=== PATIENT | female | born 1985 | race Caucasian/White ===

== ENCOUNTER 2020-02-07 10:07 | Emergency (ER) | payer SELFPAY ==
[2020-02-07 10:10] VITALS: BP 123/64; PULSE 111; TEMP 36.4; O2SAT 100; BMI 27.4
[2020-02-07 10:48] LABS: Add Urine Microscopic? YES; Bilirubin Urine Neg (Negative); Blood Urine 2+ (Negative); Glucose Urine UA Norm (Normal); Ketones Urine Negative (Negative); Leukocyte Esterase Urine 2+ (Negative); Nitrate Urine Negative (Negative); Protein Urine Neg (Negative); RBC Urine 15-25 /hpf (0-2); Specific Gravity, Urine 1.005 (1.005-1.030); Urine Color Yellow (Yellow); Urobilinogen Urine Neg (Negative); pH Urine 6 (5-7)
[2020-02-07 10:49] LABS: Bacteria Urine 2+ /hpf; Squamous Epithelial Cell Urine 15-25 /hpf (0-5); WBC Urine 55-80 /hpf (0-5)
[2020-02-07 10:50] LABS: Add Urine Culture? No
[2020-02-07 10:51] LABS: Amphetamines Screen Urine Positive (Negative); Barbiturates Screen Urine Negative (Negative); Benzodiazepines Screen Urine Negative (Negative); Cocaine Screen Urine Negative (Negative); Opiate Screen Urine Negative (Negative); PCP Screen Urine Negative (Negative); THC Screen Urine Negative (Negative)
[2020-02-07 10:52] LABS: Hematocrit 38.5 % (37.0-47.0); Hemoglobin 12.3 g/dL (11.5-15.3); Mean Corpuscular HGB Conc 31.9 g/dL (30.0-36.0); Mean Corpuscular Hemoglobin 26.7 pg (28.0-34.0); Mean Corpuscular Volume 83.5 fL (81-99); Mean Platelet Volume 9.1 fL (7.4-10.4); Platelet Count 293 10^3/cmm (130-400); Red Blood Count 4.61 10^6/uL (4.1-5.3); Red Cell Distribution Width 17.9 % (12.1-15.1); White Blood Count 7.6 10^3/uL (4.0-10.0)
[2020-02-07 11:20] LABS: Slide Review Slide Review Perform
[2020-02-07 11:23] VITALS: BP 128/86; PULSE 96; RESP 18; O2SAT 99
[2020-02-07 11:26] LABS: Absolute Neutrophil 5.1 10^3/cmm (1.4-6.5); Absolute Segmented Neutrophil 4.9 10/cmm (1.6-7.1); Band Neutrophils Absolute 0.2 10^3/cmm (0.0-1.2); Eosinophils 1 %; Lymphocytes 9 %; Lymphocytes Absolute 1.3 10^3/cmm (1.2-3.4); Monocytes Absolute 1.1 10^3/cmm (0.1-0.6); Platelet Estimate Normal (Normal); Segmented Neutrophils 64 %; Total Cells Counted 100 (0-100)
[2020-02-07 11:45] LABS: Alanine Aminotransferase 112 U/L (0-33); Albumin Level 3.3 g/dL (3.5-5.2); Alkaline Phosphatase 111 IU/L (35-105); Anion Gap 13.1 (5-19); Aspartate Amino Transferase 226 U/L (0-32); Blood Urea Nitrogen 5 mg/dL (6-20); Calcium 8.1 mg/dL (8.5-10.5); Carbon Dioxide 24 mmol/L (22-29); Chloride 100 mmol/L (98-107); Globulin 3.7 g/dL (1.3-4.6); Glucose 72 mg/dL (65-115); Osmolality Calculated 270 mOsm/kg (285-295); Potassium 4.1 mmol/L (3.5-5.1); Sodium 133 mmol/L (136-145); Total Bilirubin 0.2 mg/dL (0.15-1.2)
--- NOTE | 2020-02-07 11:58 | US_ITS ---
WS: [id number] OB ultrasound, 02/07/2020 Clinical Data: dates unknown, initial US Comparison: None. Findings: There is a single intrauterine in a variable lie. The placenta is posterior and grade 0. Th ere is a normal amount of amnionic fluid. The heart rate is 164 beats per minute. The cervix me asures 4.81 cm and is closed Measurements of growth and development: BPD: 5.1 cm HC: 19.3 cm AC: 16.5 cm FL: 3.6 cm The estimated weight is 426 or approximately 15 ounces The estimated gestational age is 21w4d w ith an PAOLO of approximately 06/15/2020. anatomy show a normal stomach, kidneys, bladder, cord insertion, three-vessel cord, entire spin e, four-chamber heart, lateral cerebral ventricles, cerebellum and cisterna magna. US/US OB >= 14 weeks fetus [id number] Impression: 1. Single intrauterine in a variable lie. 2. Estimated gestational age 21w4d with an PAOLO of 06/15/2020. 3. heart rate 164 beats per minute.
[2020-02-07 12:49] VITALS: BP 125/83; PULSE 91; RESP 18; O2SAT 97
[2020-02-07 14:51] VITALS: BP 112/75; PULSE 104; RESP 16; TEMP 36.7; O2SAT 99
--- NOTE | 2020-02-07 23:01 | ED_ITS ---
HPI - General: Chief complaint: OB/Uterine Contractions Stated complaint: NOT SURE HOW FAR/METH WITHDRAWALS Time Seen by Provider: 02/07/20 11:47 History of Present Illness: HPI Narrative: This patient a 34-year-old female who presents today with a recently discovered . She thinks her last period was in September. She did not know she was until a few days ago. She is concerned because she has been using meth throughout the . She started using IV meth during this time. Since she found out she was she has been trying to stop. She went several days without using but felt like she was going into withdrawal and was concerned about injuring the baby. She used a little bit of meth this morning before coming in. She wants to stop completely but was not sure if it was safe for how she should go about doing it. She also feels like she might have a urinary tract infection. She has been feeling the baby move on a daily basis for the last week or so. She does not have an OB doctor. She has had 10 pregnancies and has 4 children. She is not having any vaginal discharge, bleeding, abdominal cramps or pain. Associated symptoms: Reports dysuria; Deny abdominal pain, nausea or vomiting Related Data: : 10 Review of Systems Const: Reports: change in weight; Denies: fever(s) or chills GI: Denies: abdominal pain, nausea or vomiting : Reports: dysuria, urinary frequency, urinary urgency and amenorrhea [facility] ED Female Reproductive History: : 10 Physical Exam Const: COMMON NORMALS: no acute distress, patient oriented x3, no limitations and alert GENERAL APPEARANCE: cooperative and comfortable HENMT: HEAD & SCALP: normal to inspection FACE & SINUS: normal facial exam Eye: GENERAL EYE: appearance normal, both eyes and all related structures Neck/C-Spine: COMMON NORMALS: supple, no meningeal signs and no JVD Chest: COMMONS NORMALS: normal inspection of the chest Resp: COMMON NORMALS: normal respiratory effort, No use of accessory muscles and clear to auscultation bilaterally AUSCULTATION: clear to auscultation bilaterally Cardio: COMMON NORMALS: no JVD, regular rate, regular rhythm and No murmurs present (Cardio) RATE: regular rate RHYTHM: regular rhythm GI: COMMON NORMALS: Normal to inspection, nondistended, normoactive bowel sounds present, Soft to palpation and non-tender INSPECTION: Yes normal to inspection and Yes gravid abdomen (Fundus palpable just above the umbilicus) AUSCULTATION: Yes normoactive bowel sounds PALPATION: Yes Soft to palpation : UTERUS PALPATION: No Uterus tender and No Uterus hypertonus Back/Pelvis: COMMON NORMALS: thoracic and lumbar spine normal to inspection Extremity: COMMON NORMALS: normal to inspection Neuro: COMMON NORMALS: patient oriented x3, moves all extremities, no focal motor deficits and no sensory deficits noted SENSORIUM/ORIENTATION: Yes alert MENINGEAL SIGNS: Yes no meningeal signs Psych: COMMON NORMALS: mental status grossly normal, cooperative and normal affect Skin: COMMON NORMALS: no rashes or lesions noted and turgor normal GENERAL SKIN EXAM: no rashes or lesions noted and turgor normal Course ED course: Patient is not having any symptoms suggesting premature labor complications. She is here solely because of concerns about the meth use during . Ultrasound was done which showed 21-week 4-day fetus with good heart tones. Labs were unremarkable with the exception of a suspected UTI. I spoke with Dr. Chahal as well as with the manager inside about getting her set up with OB and counseling for substance abuse. The patient was glad that ever ything looked okay on the ultrasound. She is very motivated to stay clean. Hopefully she will be successful in doing that. We discussed return precautions and OB follow-up as soon as possible. Vital Signs: Vital signs: Vital Signs Temperature 98.0 F 02/07/20 14:51 Pulse Rate 104 H 02/07/20 14:51 Respiratory Rate 16 02/07/20 14:51 Blood Pressure 112/75 02/07/20 14:51 Pulse Oximetry 99 02/07/20 14:51 MDM - OB/Uterine Contractions 2 Lab Data: Labs: Lab Results 02/07/20 02/07/20 02/07/20 Range/Units 10:32 10:32 10:47 WBC 7.6 (4.0-10.0) 10^3/ uL RBC 4.61 (4.1-5.3) 10^6/u L Hgb 12.3 (11.5-15.3) g/dL Hct 38.5 (37.0-47.0) % MCV 83.5 (81-99) fL MCH 26.7 L (28.0-34.0) pg MCHC 31.9 (30.0-36.0) g/dL RDW 17.9 H (12.1-15.1) % Plt Count 293 (130-400) 10^3/c mm MPV 9.1 (7.4-10.4) fL Lymph % (Auto) Not Reportable Rush % (Auto) Not Reportable Lymph # (Auto) Not Reportable Rush # (Auto) Not Reportable Total Counted 100 (0-100) Atypical Lymphs % 8.0 H (0-5) % Absolute Neutrophi ls 5.1 (1.4-6.5) 10^3/c mm Segmented Neutroph ils 64 % Abs Segm Neuts (Ma n) 4.9 (1.6-7.1) 10/cmm Band Neutrophils 3.0 % Abs Band Neuts (Ma n) 0.2 (0.0-1.2) 10^3/c mm Absolute Lymphocyt es 1.3 (1.2-3.4) 10^3/c mm Lymphocytes (Manua l) 9 % Monocytes (Manual) 14.0 % Absolute Monocytes 1.1 H (0.1-0.6) 10^3/c mm Eosinophils (Manua l) 1 % Absolute Eosinophi ls 0.0 (0.0-0.7) 10^3/c mm Metamyelocytes 1.0 % Platelet Estimate Normal (Normal) Sodium (136-145) mmol/L Potassium (3.5-5.1) mmol/L Chloride (98-107) mmol/L Carbon Dioxide (22-29) mmol/L Anion Gap (5-19) BUN (6-20) mg/dL Creatinine (0.5-0.9) mg/dL GFR Calculation (90-130) mL/min Glucose (65-115) mg/dL Calculated Osmolal ity (285-295) mOsm/k g Calcium (8.5-10.5) mg/dL Total Bilirubin (0.15-1.2) mg/dL AST (0-32) U/L ALT (0-33) U/L Alkaline Phosphata se (35-105) IU/L Total Protein (6.6-8.7) g/dL Albumin (3.5-5.2) g/dL Globulin (1.3-4.6) g/dL Ser , Brigette i-Qnt mIU/mL Urine Color Yellow (Yellow) Urine Appearance Sl cloudy A (CLEAR) Urine pH 6 (5-7) Ur Specific Gravit y 1.005 (1.005-1.030) Urine Protein Neg (Negative) Urine Glucose (UA) Norm (Normal) Urine Ketones Negative (Negative) Urine Blood 2+ H (Negative) Urine Nitrate Negative (Negative) Urine Bilirubin Neg (Negative) Urine Urobilinogen Neg (Negative) mg/dL Ur Leukocyte Mary Jo ase 2+ H (Negative) Urine RBC 15-25 H (0-2) /hpf Urine WBC 55-80 H (0-5) /hpf Ur Squamous Epith Cells 15-25 H (0-5) /hpf Amorphous Sediment Not Reportable Urine Bacteria 2+ H (NONE) /hpf Urine Yeast 2+ H /hpf Urine Opiates Scre en Negative (Negative) ng/mL Ur Barbiturates Sc reen Negative (Negative) ng/mL Ur Phencyclidine S crn Negative (Negative) ng/mL Ur Amphetamines Sc reen Positive H (Negative) ng/mL U Benzodiazepines Scrn Negative (Negative) ng/mL Urine Cocaine Scre en Negative (Negative) ng/mL U Marijuana (THC) Screen Negative (Negative) ng/mL 02/07/20 Range/Units 10:47 WBC (4.0-10.0) 10^3/ uL RBC (4.1-5.3) 10^6/u L Hgb (11.5-15.3) g/dL Hct (37.0-47.0) % MCV (81-99) fL MCH (28.0-34.0) pg MCHC (30.0-36.0) g/dL RDW (12.1-15.1) % Plt Count (130-400) 10^3/c mm MPV (7.4-10.4) fL Lymph % (Auto) Rush % (Auto) Lymph # (Auto) Rush # (Auto) Total Counted (0-100) Atypical Lymphs % (0-5) % Absolute Neutrophi ls (1.4-6.5) 10^3/c mm Segmented Neutroph ils % Abs Segm Neuts (Ma n) (1.6-7.1) 10/cmm Band Neutrophils % Abs Band Neuts (Ma n) (0.0-1.2) 10^3/c mm Absolute Lymphocyt es (1.2-3.4) 10^3/c mm Lymphocytes (Manua l) % Monocytes (Manual) % Absolute Monocytes (0.1-0.6) 10^3/c mm Eosinophils (Manua l) % Absolute Eosinophi ls (0.0-0.7) 10^3/c mm Metamyelocytes % Platelet Estimate (Normal) Sodium 133 L (136-145) mmol/L Potassium 4.1 (3.5-5.1) mmol/L Chloride 100 (98-107) mmol/L Carbon Dioxide 24 (22-29) mmol/L Anion Gap 13.1 (5-19) BUN 5 L (6-20) mg/dL Creatinine 0.5 (0.5-0.9) mg/dL GFR Calculation 143.0 H (90-130) mL/min Glucose 72 (65-115) mg/dL Calculated Osmolal ity 270 L (285-295) mOsm/k g Calcium 8.1 L (8.5-10.5) mg/dL Total Bilirubin 0.2 (0.15-1.2) mg/dL AST 226 H (0-32) U/L ALT 112 H (0-33) U/L Alkaline Phosphata se 111 H (35-105) IU/L Total Protein 7.0 (6.6-8.7) g/dL Albumin 3.3 L (3.5-5.2) g/dL Globulin 3.7 (1.3-4.6) g/dL Ser , Brigette [place]Qnt 15440.00 mIU/mL Urine Color (Yellow) Urine Appearance (CLEAR) Urine pH (5-7) Ur Specific Gravit y (1.005-1.030) Urine Protein (Negative) Urine Glucose (UA) (Normal) Urine Ketones (Negative) Urine Blood (Negative) Urine Nitrate (Negative) Urine Bilirubin (Negative) Urine Urobilinogen (Negative) mg/dL Ur Leukocyte Mary Jo ase (Negative) Urine RBC (0-2) /hpf Urine WBC (0-5) /hpf Ur Squamous Epith Cells (0-5) /hpf Amorphous Sediment Urine Bacteria (NONE) /hpf Urine Yeast /hpf Urine Opiates Scre en (Negative) ng/mL Ur Barbiturates Sc reen (Negative) ng/mL Ur Phencyclidine S crn (Negative) ng/mL Ur Amphetamines Sc reen (Negative) ng/mL U Benzodiazepines Scrn (Negative) ng/mL Urine Cocaine Scre en (Negative) ng/mL U Marijuana (THC) Screen (Negative) ng/mL Discharge Plan Discharge Patient Disposition: Home Clinical Impression: Substance abuse, Abnormal LFTs Qualifiers: Weeks of gestation: 21 weeks Qualified Code(s): Z3A.21 - 21 weeks gestation of UTI (urinary tract infection) Qualifiers: Urinary tract infection type: site unspecified Hematuria presence: with hematuria Qualified Code(s): N39.0 - Urinary tract infection, site not specified Condition: Stable Prescriptions: New prenat.vits,patricia,[id number] Tablet 1 tab PO DAILY Qty: 30 RF: 0 amoxicillin 875 mg tablet 875 mg PO BID Qty: 14 RF: 0 Discharge Orders: Discharge Order (Routine); Ordered 02/07/20 Ordered By: Tran Arroyo Referrals: Rainer Chahal MD [Physician] - Manjeet Bray MD [Primary Care Provider] - Discharge Diet: Usual diet Discharge Activity: Resume usual activity Patient Instructions: (ED), Methamphetamine Abuse (ED) Activity Restrictions/Additional Instructions: Make sure to eat and drink healthy diet. Return to the ED if vomiting and unable to tolerate fluids, fever, abdominal pain, leakage of fluids or vaginal bleeding. Follow-up as soon as possible with Dr. Chahal's office. Also seek assistance with substance abuse from counselors based on the referrals that were given to you. Discharge Date/Time: 02/07/20 14:51 Coding Level of Care Code ED Field Software Engineer for Yunior Villagomez
== END 2020-02-07 14:51 | disposition home or self-care (01) ==
PROVIDERS: Emergency Medicine; Emergency Provider Emergency Medicine; PCP Family Medicine
DX: O99.322 Drug use complicating pregnancy, second trimester (principal); F15.10 Other stimulant abuse, uncomplicated; O23.42 Unspecified infection of urinary tract in pregnancy, second trimester; Z3A.21 21 weeks gestation of pregnancy; O26.892 Other specified pregnancy related conditions, second trimester; R79.9 Abnormal finding of blood chemistry, unspecified
CPT/HCPCS: 12345; 36415; 76805; 80053; 80306; 81001; 84702; 85007; 85025; 99283

== ENCOUNTER 2020-06-20 10:00 | Inpatient (IN) | payer BC, SELFPAY ==
[2020-06-20] VITALS (100 sets, daily range): BP systolic 83–148; BP diastolic 39–81; PULSE 67–142; RESP 15–18; TEMP 36.7–38.1; O2SAT 89–100; BMI 30.7
[2020-06-20 04:12] LABS: Basophils % 0.2 %; Eosinophils # 0.1 10^3/uL (0.0-0.8); Eosinophils % 0.4 %; Hemoglobin 9.8 g/dL (11.5-15.3); Lymphocytes # 1.8 10^3/uL (0.8-4.8); Lymphocytes % 10.5 %; Mean Corpuscular HGB Conc 30.6 g/dL (30.0-36.0); Mean Corpuscular Hemoglobin 22.2 pg (28.0-34.0); Mean Corpuscular Volume 72.4 fL (81-99); Mean Platelet Volume 10.1 fL (7.4-10.4); Monocytes # 1.3 10^3/uL (0.2-0.9); Monocytes % 7.8 %; Neutrophils # 13.52 10^3/uL (1.8-7.7); Neutrophils % 80.5 %; Nucleated Red Blood Cells % 0.1 %; Platelet Count 322 10^3/cmm (130-400); Red Blood Count 4.42 10^6/uL (4.1-5.3); Red Cell Distribution Width 16.2 % (12.1-15.1); White Blood Count 16.8 10^3/uL (4.0-10.0)
[2020-06-20 04:21] LABS: Amphetamines Screen Urine Negative (Negative); Barbiturates Screen Urine Negative (Negative); Benzodiazepines Screen Urine Negative (Negative); Cocaine Screen Urine Negative (Negative); Opiate Screen Urine Negative (Negative); PCP Screen Urine Negative (Negative); THC Screen Urine Negative (Negative)
[2020-06-20] MEDS: lactated ringers 1,000 ML 999 ML IV ×3 (04:25→13:59)
[2020-06-20] MEDS: ampicillin 2,000 MG in sodium chloride 0.9% (plus) 50 ML 100 MG IV (04:26)
--- NOTE | 2020-06-20 07:52 | P.ANESASSM_ITS ---
Pre-Anesthetic Assessment Pre-Anesthetic Assessment: Height/Weight: Height 1.63 m Weight 81.193 kg Temp Pulse Resp BP Pulse Ox 98.2 F 131 H 18 104/59 100 06/20/20 03:28 06/20/20 07:51 06/20/20 05:56 06/20/20 07:51 06/20/20 05:53 Preop Diagnosis: IUP Proposed Procedure: Epidural Familial anesthetic complications: None Was Beta Franklin taken within 24 hours: N/A Last intake: icechips Social: Social History: Tobacco Exam: Pre-Anes Outpt Exam: alert, oriented x 3, clear to auscultation bilaterally and regular rate & rhythm Airway: Cervical ROM: WNL MP: 3 Dentition: Chipped Anesthetic Plan: ASA status: 2 Anesthesia: Regional (specify below) (epidural) Risk of > 500 ml blood loss (7ml/kg in children): Yes, adequate IV access and fluids planned Meds/Allergies Current Medications: Current Medications Generic Name Dose Route Start Last Admin Trade Name Freq PRN Reason Stop Dose Admin Lactated Ringer's 1,000 mls @ 999 m ls/hr 06/20/20 05:56 06/20/20 07:00 Lactated Ringers IV 999 mls/hr .Q1H1M PRN Administration Per L&D Rescitati on Protocol [facility] Anesthesia Female Reproductive History: : 8 Data Anesthesia CBC & Chem 7: 06/20/20 03:57 Other Labs: Laboratory Results - last 48 hr 06/20/20 06/20/20 06/20/20 03:57 03:57 03:57 WBC 16.8 H RBC 4.42 Hgb 9.8 L Hct 32.0 L MCV 72.4 L MCH 22.2 L MCHC 30.6 RDW 16.2 H Plt Count 322 MPV 10.1 Neut % (Auto) 80.5 Lymph % (Auto) 10.5 [place] % (Auto) 7.8 Eos % (Auto) 0.4 Baso % (Auto) 0.2 Neut # (Auto) 13.52 H Lymph # (Auto) 1.8 [place] # (Auto) 1.3 H Eos # (Auto) 0.1 Baso # (Auto) 0.0 Nucleated RBC % (auto) 0.1 Nucleated RBCs # 0.0 Urine Opiates Screen Negative Ur Barbiturates Screen Negative Ur Phencyclidine Scrn Negative Ur Amphetamines Screen Negative U Benzodiazepines Scrn Negative Urine Cocaine Screen Negative U Marijuana (THC) Screen Negative Blood Type O Positive Rho(D) Type Positive Antibody Screen Negative Cardiac Studies: No Data to Display
--- NOTE | 2020-06-20 07:53 | ANES.PROC ---
Anesthesia Procedures Procedure/Date: 06/20/20 Epidural: Time Out Performed: Yes Consents Signed: Procedure Consent and NPO Consent Consent: requested by attending/covering physician, from patient, risks and benefits reviewed and patient agrees to proceed Lumbar Level: L4-L5 Epidural position: sitting Epidural procedure: sterile prep of area, 1% lidocaine to numb the area, 18 g needle, negative for paresthesia passed, neg for paresthesia, test dose given, 1.5% xylocaine 1:200k epi (5 cc divided dose), 0.2% Ropivacaine bolus ml (5 cc), placed PCEA, no systemic response, sterile dressing applied, L.U.D. no apparent complications and 0.2% Ropiavacaine @ mls/hr (13) Additional Comments: Blood return with catheter placement on first attempt, pulled back to 12 cm and skin and aspirated heme. Removed catheter. 2nd attempt loss of resisitance to saline at 6 cm, threaded to 12 cm. Patient reported significant decrease in pain with next several contractions
[2020-06-20] MEDS: dextrose 5%-lactated ringers 1,000 ML 125 ML IV ×3 (07:59→21:41)
[2020-06-20] MEDS: ampicillin 1,000 MG in sodium chloride 0.9% (plus) 50 ML 100 MG IV (07:59)
--- NOTE | 2020-06-20 09:36 | PC.NURSE ---
pt does not have custody of other children, pt informed hotline call will have to be made. pt very cooperative answering questions
[2020-06-20] MEDS: acetaminophen 325 mg Tablet 650 MG PO (12:35)
--- NOTE | 2020-06-20 15:25 | PC.NURSE ---
Notified anesthesia - Dr. Nixon - of section at 1600 if patient has not made significant progress before that time. Dr. Nixon acknowledged understanding, and replied that she would let Will know.
--- NOTE | 2020-06-20 15:29 | PC.NURSE ---
Emily from surgery called and reported Will would be on the floor at 1600 for a section.
[2020-06-20] MEDS: lactated ringers 1,000 ML 125 ML IV ×2 (16:00→16:08)
[2020-06-20] MEDS: oxytocin 30 UNIT/500 ML BAG 600 UNIT IV (16:08)
--- NOTE | 2020-06-20 16:09 | PC.NURSE ---
and at bedside,RN at bedside
[2020-06-20] MEDS: metoclopramide 5 mg/mL SDV 2 mL 10 MG IVP (16:14)
[2020-06-20] MEDS: citric acid-sodium citrate 30 mL UDC PO (16:14)
[2020-06-20] MEDS: famotidine 20 mg/2 mL INJ IVP (16:15)
[2020-06-20] MEDS: clindamycin 900 MG/50 ML PREMIX 100 MG IV (16:15)
--- NOTE | 2020-06-20 16:26 | P.HP_ITS ---
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 She has been followed throughout the day and has not made a lot of progress. She dilated to approximately 7 cm dilated but has had a face presentation periodically and other times a vertex presentation. The infant has not dropped down through the canal and is still staying very high. Should be noted that she is attempting a vaginal after section. She has had 3 successful vaginal deliveries with 1 section with her third secondary to breech presentation. She is a 8, para 4 female. It should be also noted that during this she has had very little care. She saw this physician initially at 27 weeks gestation and then left the state and returned with me seeing her again at 40 weeks and 3 days gestation. She received no care during the remainder of her . The patient's blood type is O+ with antibody screen negative. Her group B strep was negative. Covid was also negative. Present Details : 8 Para: 5 Labs Rubella: Immune RPR: Negative GBS: Negative Review of Systems Const: Reports: fatigue; Denies: fever(s), chills or change in weight Eyes: Denies: change in vision ENMT: Denies: throat pain or odynophagia Card: Denies: chest pain, palpitations or orthopnea Resp: Denies: dyspnea, productive cough or non-productive cough GI: Reports: abdominal pain (Contractions that have settled with epidural.) : Reports: change in menstrual flow Musc: Denies: neck pain or joint redness Neuro: Denies: headache(s), weakness in extremities, lack of coordination or difficulty walking Psych: Denies: anxiety or depression Medications/Allergies Home Medications Medication Instructions Recorded Confirmed Last Taken Type amoxicillin 875 mg PO BID #14 tab 02/07/20 Unknown Rx prenat.vits,patricia,kll-[id number] 1 tab PO DAILY #30 tab 02/07/20 Unknown Rx Allergies Allergy/AdvReac Type Severity Reaction Status Date / Time cephalexin Allergy ADR-Vomitin Verified 02/07/20 10:16 g clarithromycin [From Biaxin] Allergy ADR-Vomitin Verified 02/07/20 10:17 g nystatin Allergy ALGMilton-Emiliano Verified 02/07/20 10:17 Vitals/I&O/Wt Last Vital Signs Temp 99.7 F H 06/20/20 16:24 Pulse 93 06/20/20 16:13 Resp 18 06/20/20 11:25 BP 89/50 06/20/20 16:13 Pulse Ox 100 06/20/20 05:53 06/20/20 06/20/20 06/20/20 06:59 14:59 22:59 Intake Total 1218.750 / 1218.750 Balance 1218.750 / 1218.750 Weight last 48 hrs Weight 81.193 kg Physical Exam Const: COMMON NORMALS: no acute distress and no limitations GENERAL APPEARANCE: cooperative, comfortable and well kempt Resp: COMMON NORMALS: normal respiratory effort, No retractions, No use of accessory muscles and clear to auscultation bilaterally Cardio: COMMON NORMALS: regular rate, regular rhythm and No murmurs present (Cardio) GI: COMMON NORMALS: Normal to inspection, nondistended, normoactive bowel sounds present (She is . uterus otherwise is normal.), Soft to palpation and non-tender : COMMON NORMALS: Yes no CVA tenderness MANUAL OB EXAM: dilated 7 cm, effaced 75% and station -2 Neuro: COMMON NORMALS: CN's II-XII intact bilaterally, moves all extremities, no focal motor deficits and no sensory deficits noted Psych: COMMON NORMALS: mental status grossly normal, Normal thought process present, cooperative and normal affect Urinary Catheter Management^: Smith: Cath Placed During This Visit: yes Reason for Continuing Indwelling Catheter: Acute Urinary Retention or Obstruction Urinary Catheter Date of Insertion: 06/20/20 Urinary Catheter Time of Insertion: 08:25 Data : 06/20/20 03:57 A&P Assessment and plan (1) Non-reassuring heart tones complicating , antepartum: Patient has had intermittent nonreassuring heart tones but overall a decent strip. However as patient has failed to make progress and descend I think it is time to proceed with section. Status: Acute (2) Failure of descent in labor, delivered, current hospitalization: We will proceed with repeat section. Dr. Ann has been consulted. Status: Acute (3) Previous section complicating : See above. Status: Acute (4) Term : Patient has lack of system care during this complicating a term with previous section. Status: Acute (5) Previous section: Status: Acute Attestations Medical Necessity Statement*: This patient has a term in spontaneous labor which failed to progress. She requires a probably greater than 2 midnight hospital stay. Coding Level of Care Code Acute Assistant Director Of Admissions for Chg Fwd Exam Detailed Diagnoses Non-reassuring heart tones complicating , antepartum O36.8390 Failure of descent in labor, delivered, current hospitalization O62.2 Previous section complicating O34.219 Term Z34.90 Previous section Z98.891
[2020-06-20] MEDS: gentamicin inj 120 MG in sodium chloride 0.9% (100 ml) 100 ML 103 MG IV (16:45)
--- NOTE | 2020-06-20 17:30 | P.OP_ITS ---
Operative Report Date of procedure: June 20, 2020 Pre-op Diagnosis: IUP, TOLAC, failure to progress Post-op diagnosis: same Procedure Done: Low transverse section, repeat Specimens removed/disposition: 1. Female infant with a weight of 7 pounds 14 ounces and Apgars of 7 and 9 2. Placenta with a three-vessel cord delivered intact Pathology: none sent Surgeon: Edmond Ann Chiropractic Neurologist: Manjeet Bray Anesthesia: Epidural Estimated blood loss (mL): 1,200 Complications: None Condition: stable Disposition: floor (OB) Procedure: The patient was brought back to the operating room where she was prepped and draped in usual sterile fashion. Anesthesia was found to be adequate. A lower transverse skin incision was then made with a #10 blade. I then dissected down to the underlying subcutaneous tissue until arriving at the prerectal fascia. The fascia was then nicked with the scalpel bilaterally. The fascial incisions were then carried laterally with Ramon scissors. Attention was then turned to the superior aspect of the incision which was grasped with kochers and tented up away from the underlying rectus abdominis muscles. The muscles were then dissected away from the fascia manually, and later with Ramon scissors. Attention was then turned to the inferior aspect of the incision, and the fascia was dissected away from the underlying muscle in similar fashion. The rectus abdominis muscles were then spread manually. The peritoneum was entered manually. Excellent visualization of the uterus was noted. A lower transverse uterine incision was then made with a #10 blade. Upon arriving at the intrauterine cavity, the uterine incision was then extended manually. The infant was noted to be in vertex position. The baby was delivered without difficulty. After delivery of the head, the mouth and nose were suctioned at the site of the incision. There was no meconium. There was no nuchal cord. The remainder of the body was then delivered and placed on the abdomen. The cord was cut and clamped. The baby was then handed to the waiting nurse. The placenta was removed intact. The uterus was externalized. The intrauterine cavity was cleansed of any remaining debris. The uterine incision was reapproximated in 2 layers. The first layer was performed with 0 Vicryl in a running locked stitch. The second layer was an imbricating stitch also using 0 Vicryl. The uterus was replaced into the abdomen. The peritoneum was then irrigated with warm saline. I reexamined the uterine incision and found it to be hemostatic. The rectus abdominis muscles were then reapproximated using 0 Vicryl in a running stitch. The fascia was then reapproximated using 0 Vicryl in running stitch. The subcutaneous tissue was then approximated using 0 Vicryl in a running stitch as well. The skin was reapproximated using torin. A sterile dressing was placed. All counts were correct x2. Both the mother and baby were in stable condition.
--- NOTE | 2020-06-20 19:40 | PC.NURSE ---
pt to room OB9 from OR via bed. oriented to room/call light. instructed not to get out of bed without assistance. instructed she can begin clear liquids at 2200, and may get up to the chair then as well.
[2020-06-20] MEDS: ketorolac 30 mg/mL INJ IVP (23:53)
[2020-06-21 02:00] VITALS: BP 99/57; PULSE 89; O2SAT 96
[2020-06-21 04:10] VITALS: BP 108/61; PULSE 92; RESP 16; O2SAT 96
[2020-06-21] MEDS: ketorolac 30 mg/mL INJ IVP (06:06)
[2020-06-21 06:28] LABS: Hematocrit 24.3 % (37.0-47.0); Hemoglobin 7.4 g/dL (11.5-15.3); Mean Corpuscular HGB Conc 30.5 g/dL (30.0-36.0); Mean Corpuscular Volume 72.3 fL (81-99); Mean Platelet Volume 10.1 fL (7.4-10.4); Platelet Count 257 10^3/cmm (130-400); Red Blood Count 3.36 10^6/uL (4.1-5.3); Red Cell Distribution Width 16.6 % (12.1-15.1)
--- NOTE | 2020-06-21 08:30 | ANE.PACU2 ---
Inpatient post-anesthesia follow up: Airway intact: Yes Vital signs: Temperature 97.4 F Pulse Rate 92 Respiratory Rate 18 Blood Pressure 119/68 Pulse Oximetry 96 Oxygen Delivery Me thod Room Air Oxygen Flow Rate 0 Fraction of Inspir ed Oxygen Hydration adequate: Yes Nausea and vomiting: No Pain level: 1 Mental status: Baseline Additional Comments: No numbness or weakness, no complaints of headache, messina recently removed
[2020-06-21] MEDS: ferrous sulfate EC 325 mg Tablet PO ×2 (09:10→17:49)
[2020-06-21] MEDS: prenatal vitamin Capsule 1 CAP PO (09:10)
[2020-06-21] MEDS: docusate sodium 100 mg Capsule PO ×2 (09:10→17:49)
[2020-06-21] MEDS: HYDROcodone-acetaminophen 5-325 mg Tablet PO ×4 (09:10→23:09)
[2020-06-21 09:45] VITALS: BP 130/85; PULSE 92; RESP 18; TEMP 36.7
--- NOTE | 2020-06-21 10:07 | PM.OBGYPN ---
PROGRAM ARCHITECT Subjective Subjective: Interval history: The patient was off the floor when I went into her room. Reports from the nurses that she is doing well. Her bleeding is been appropriate. Her pain is been well controlled. DFS is involved in her case and she may lose her babies apparently she is frustrated about that. There are no other concerns at this time. Labor: Station: -2 Amniotic Membrane Status: Ruptured Monitor Mode: External Contraction Pattern: Regular Status: Category II Vitals/I&O/Wt Last Vital Signs Temp 98.7 F 06/20/20 20:10 Pulse 92 06/21/20 04:10 Resp 16 06/21/20 04:10 BP 108/61 06/21/20 04:10 Pulse Ox 96 06/21/20 04:10 06/20/20 06/21/20 06/21/20 22:59 06:59 14:59 Intake Total 2053 / 3271.750 300 / 300 Output Total 3650 / 3650 1700 / 5350 400 / 400 Balance -1597 / -378.250 -1700 / -2078.250 -100 / -100 Weight last 48 hrs Weight 179 lb Physical Exam Narrative: EXAM NARRATIVE: She is in no acute distress Lungs are clear auscultation bilaterally Her heart has a regular rate and rhythm Her fundus is below the umbilicus and firm Her dressing is clean, dry and intact Her extremities have trace edema Urinary Catheter Management^: Smith: Cath Placed During This Visit: yes, but has since been removed by the nurse Reason for Continuing Indwelling Catheter: Decision to DC Catheter Urinary Catheter Date of Insertion: 06/20/20 Urinary Catheter Time of Insertion: 08:25 Date Urinary Catheter Removed: 06/21/20 Time Urinary Catheter Discontinued: 08:00 Data : 06/21/20 06:15 Attestations Medical Necessity Statement*: Routine post care. I Anticipate discharge tomorrow Coding Level of Care Code Acute Road Freight Brake Coupler for Yunior Villagomez
[2020-06-21] MEDS: ibuprofen 800 mg tablet PO ×2 (14:57→21:01)
[2020-06-21 15:30] VITALS: BP 119/68; PULSE 92; RESP 18; TEMP 36.3
[2020-06-21 22:00] VITALS: BP 131/74; PULSE 111; RESP 16; O2SAT 99
--- NOTE | 2020-06-22 05:08 | PM.OBGYDC ---
Discharge Providers PREMIUM CARD CANCELLATION CLERK Date of Admission: 06/20/20 10:00 Date of Discharge: 06/22/20 Attending Provider at Admission: Manjeet Bray MD Attending Provider at Discharge: Manjeet Bray MD Primary Care Provider: Manjeet Bray MD Diagnoses at Discharge Discharge Diagnosis (1) Non-reassuring heart tones complicating , antepartum: Status: Acute (2) Failure of descent in labor, delivered, current hospitalization: Status: Acute (3) Previous section complicating : Status: Acute (4) Term : Status: Acute (5) Previous section: Status: Acute Reason for Visit Reason for Visit: contractions Hospital Course Hospital Course The patient presented to the hospital in active labor. The patient had previous section. As such myself as well as anesthesia were consulted and were immediately available in case of emergency. Despite laboring to 9 cm, the baby was not descending appropriately. The baby began having prolonged decelerations, the decision was made to proceed with a section. A was performed, and the patient had an unremarkable course. Her pain was well controlled. Her bleeding was within normal limits. She passed flatus. She tolerated advancing her diet to regular diet. She ambulated without difficulty. Information Peripartum Data: Infant Delivery Method: Physical Exam Narrative: EXAM NARRATIVE: She is in no acute distress Lungs are clear auscultation bilaterally Her heart has a regular rate and rhythm Her fundus is below the umbilicus and firm Her incision is clean dry and intact. Her extremities have trace edema Urinary Catheter Management^: Smith: Cath Placed During This Visit: yes, but has since been removed by the nurse Reason for Continuing Indwelling Catheter: Decision to DC Catheter Urinary Catheter Date of Insertion: 06/20/20 Urinary Catheter Time of Insertion: 08:25 Date Urinary Catheter Removed: 06/21/20 Time Urinary Catheter Discontinued: 08:00 Discharge Data Data Completed and Pending: Labs from last 24 hours 06/21/20 06:15 WBC 22.0 H RBC 3.36 L Hgb 7.4 L Hct 24.3 L MCV 72.3 L MCH 22.0 L MCHC 30.5 RDW 16.6 H Plt Count 257 MPV 10.1 Vitals: Last Vital Signs Temp 97.4 F L 06/21/20 15:30 Pulse 111 H 06/21/20 22:00 Resp 16 06/21/20 22:00 BP 131/74 06/21/20 22:00 Pulse Ox 99 06/21/20 22:00 Discharge Plan Discharge Patient Disposition: Home Condition: Stable Prescriptions: New ibuprofen 800 mg Tablet 800 mg PO TID Qty: 45 RF: 0 hydrocodone-acetaminophen 5-325 mg Tablet 1 - 2 tab PO Q4H PRN (Reason: Moderate To Severe Pain) Qty: 20 RF: 0 Continued prenat.vits,patricia,kws-ephu-cocud Tablet 1 tab PO DAILY Qty: 30 RF: 0 Discontinued amoxicillin 875 mg tablet 875 mg PO BID Qty: 14 RF: 0 Discharge Orders: Discharge Order (Routine); Ordered 06/22/20 Ordered By: Edmond Ann Referrals: Manjeet Bray MD [Primary Care Provider] - 6 Weeks Edmond Ann MD [Physician] - 4-7 days ( afternoon is probably the best option) Discharge Diet: Regular Discharge Activity: Limit activity as instructed Discharge Attestations PREMIUM CARD CANCELLATION CLERK Time Spent in Discharge Care*: less than 30 min Specific Discharge Activities: Specific discharge activities: educating patient Coding Level of Care Code Acute Claims Adjustor for Chg Fwd Diagnoses Non-reassuring heart tones complicating , antepartum O36.8390 Failure of descent in labor, delivered, current hospitalization O62.2 Previous section complicating O34.219 Term Z34.90 Previous section Z98.891
[2020-06-22] MEDS: prenatal vitamin Capsule 1 CAP PO (08:51)
[2020-06-22] MEDS: docusate sodium 100 mg Capsule PO (08:51)
[2020-06-22] MEDS: ferrous sulfate EC 325 mg Tablet PO (08:51)
[2020-06-22] MEDS: HYDROcodone-acetaminophen 5-325 mg Tablet PO (08:52)
[2020-06-22] MEDS: ibuprofen 800 mg tablet PO (08:52)
[2020-06-22 09:05] VITALS: BP 146/87; PULSE 97; RESP 20; TEMP 36.4; O2SAT 97
[2020-06-22 09:20] VITALS: BP 146/87; PULSE 97; RESP 20; TEMP 36.4; O2SAT 97
[2020-06-22 09:32] VITALS: BP 146/87; PULSE 97; RESP 20; TEMP 36.4; O2SAT 97
== END 2020-06-22 09:20 | disposition home or self-care (01) | DRG 788 ==
LOC: OPOB 17:01 → OBGYN 17:01
PROVIDERS: Family Medicine; Admitting Provider Family Medicine; PCP Family Medicine; Visit Provider Family Medicine
PROC: (CPT 59514; principal; 2020-06-20 16:45)
DX: O34.211 Maternal care for low transverse scar from previous cesarean delivery (principal); N85.8 Other specified noninflammatory disorders of uterus; Z3A.40 40 weeks gestation of pregnancy; Z37.0 Single live birth; O32.4XX0 Maternal care for high head at term, not applicable or unspecified; O76 Abnormality in fetal heart rate and rhythm complicating labor and delivery
CPT/HCPCS: 12345; 36415; 51702; 59025; 59409; 80306; 85025; 85027; 86850; 86900; 99211; J0131; J0290; J1580; J1885; J2274; J2370; J2765; J2795; J3010; J3490

== ENCOUNTER 2021-11-09 05:24 | Emergency (ER) | payer BC, MEDICAID, SELFPAY ==
[2021-11-09 05:27] VITALS: BP 143/76; PULSE 57; RESP 18; TEMP 36.5; O2SAT 100; BMI 23.1
[2021-11-09 05:35] LABS: Basophils # 0.1 10^3/uL (0.0-0.1); Basophils % 0.7 %; Eosinophils # 0.1 10^3/uL (0.0-0.8); Eosinophils % 1.5 %; Hematocrit 30.6 % (37.0-47.0); Hemoglobin 8.8 g/dL (11.5-15.3); Lymphocytes # 2.3 10^3/uL (0.8-4.8); Lymphocytes % 23.9 %; Mean Corpuscular HGB Conc 28.8 g/dL (30.0-36.0); Mean Corpuscular Hemoglobin 17.9 pg (28.0-34.0); Mean Corpuscular Volume 62.3 fl (81-99); Monocytes # 0.9 10^3/uL (0.2-0.9); Monocytes % 9.6 %; Neutrophils # 6.06 10^3/uL (1.8-7.7); Neutrophils % 64.2 %; Nucleated Red Blood Cells % 0 %; Platelet Count 382 10^3/cmm (130-400); Red Blood Count 4.91 10^6/uL (4.1-5.3); Red Cell Distribution Width 18.1 % (12.1-15.1); White Blood Count 9.5 10^3/uL (4.0-10.0)
[2021-11-09 05:49] LABS: HCG, Serum Qual Negative (Negative)
[2021-11-09 05:50] VITALS: BP 143/76; PULSE 80; RESP 16; O2SAT 100
[2021-11-09 05:52] LABS: Alanine Aminotransferase 27 U/L (0-33); Albumin Level 4.2 g/dL (3.5-5.2); Alkaline Phosphatase 61 IU/L (35-105); Anion Gap 13.2 (5-19); Aspartate Amino Transferase 23 U/L (0-32); Blood Urea Nitrogen 13 mg/dL (6-20); Calcium 8.7 mg/dL (8.5-10.5); Carbon Dioxide 23 mmol/L (22-29); Chloride 102 mmol/L (98-107); Creatinine Clr Calc Pharmacy 119.5368; Globulin 3.2 g/dL (1.3-4.6); Glomerular Filtration Rate 114.4 mL/min (90-130); Glucose 106 mg/dL (65-115); Lipase 29 U/L (13-60); Osmolality Calculated 279 mOsm/kg (285-295); Potassium 4.2 mmol/L (3.5-5.1); Sodium 134 mmol/L (136-145); Total Bilirubin 0.2 mg/dL (0.15-1.2); Total Protein 7.4 g/dL (6.6-8.7)
[2021-11-09] MEDS: morphine 4 mg/mL SDV 1 mL IVP ×2 (05:54→06:36)
[2021-11-09] MEDS: ondansetron 2 mg/ML SDV 2 mL 4 MG IVP ×2 (05:54→06:36)
--- NOTE | 2021-11-09 06:03 | CTR_ITS ---
PROCEDURE INFORMATION: Exam: CT Abdomen And Pelvis Without Contrast Exam date and time: 11/09/2021 6:17 AM Age: 36 years old Clinical indication: Abdominal pain; Prior surgery; Surgery type: ; Additional info: Abd pain TECHNIQUE: Imaging protocol: Computed tomography of the abdomen and pelvis without contrast. Radiation optimization: All CT scans at this facility use at least one of these dose optimization techniques: automated exposure control; mA and/or kV adjustment per patient size (includes targeted exams where dose is matched to clinical indication); or iterative reconstruction. COMPARISON: CT Abdomen/Pelvis Renal [id number] 01/05/2018 6:47 PM RADIATION DOSE METRICS: Total DLP (mGy-cm): 910.82 FINDINGS: Liver: Normal. No mass. Gallbladder and bile ducts: Normal. No calcified stones. No ductal dilation. Pancreas: Normal. No ductal dilation. Spleen: Normal. No splenomegaly. Adrenal glands: Normal. No mass. Kidneys and ureters: Normal. No hydronephrosis. Stomach and bowel: Unremarkable. No obstruction. No mucosal thickening. Appendix: No evidence of appendicitis. Intraperitoneal space: Unremarkable. No free air. No significant fluid collection. Vasculature: Unremarkable. No abdominal aortic aneurysm. Lymph nodes: Unremarkable. No enlarged lymph nodes. Urinary bladder: Unremarkable as visualized. Reproductive: Unremarkable as visualized. Bones/joints: Unremarkable. No acute fracture. Soft tissues: Unremarkable. CT/CT abdomen pelvis wo con [id number] IMPRESSION: No acute findings.
[2021-11-09] MEDS: lidocaine 2% viscous 15 ML, aluminum-mag hydrox-simethicon 30 ML, sucralfate oral liq 1 GM PO (06:36)
[2021-11-09 06:37] VITALS: BP 141/86; PULSE 63; RESP 16; O2SAT 100
--- NOTE | 2021-11-09 06:44 | W.ED.ABDPA2 ---
HPI - Abdominal Pain General: Chief Complaint: Abdominal Pain Stated Complaint: ABD pain Time Seen by Provider: 11/09/21 05:45 Source: patient Mode of arrival: ambulatory Limitations: no limitations History of Present Illness: 36-year-old female presents emergency room complaining of abdominal pain. She is refers most of her pain to the epigastric area. She states she was having aggressive sex this morning and her pain began during the night. Pain is in the epigastrium. She denies any nausea vomiting diarrhea no dysuria urgency or frequency no vaginal bleeding. She is 1 week post menses with normal menses although she does admit to having unprotected sex. Patient has previously had sections but denies previous cholecystectomy or appendectomy. No history of upper GI bleed. She does have some chronic anemia. MD elicited complaint: abdominal pain Pertinent past history: none Onset (ago): hour(s) Pain Consistency: constant Location: Epigastric Severity: moderate Quality: cramping Radiation: none Migration to: no migration Exacerbating factors: movement Relieving factors: rest Associated Symptoms: Reports GI cramping, nausea and poor appetite; Denies anorexia, belching, bloating, change in bowel habits, change in stool character, chills, coffee ground emesis, constipation, diarrhea, dyspepsia, dysuria, excessive flatus, fever(s), heartburn, hematochezia, hematuria, hematemesis, fecal incontinence, loose stools, melena, syncope and vomiting Review of Systems Const: Denies: fever(s) or chills ENMT: Denies: throat pain, ear or mastoid pain, nasal discharge or nasal congestion Card: Denies: syncope Resp: Denies: dyspnea, productive cough or non-productive cough GI: Reports: abdominal pain, nausea and GI cramping; Denies: vomiting, hematemesis, coffee ground emesis, heartburn, diarrhea, constipation, bloating, belching, excessive flatus, fecal incontinence, change in bowel habits, change in stool character, hematochezia or melena : Denies: flank pain, difficulty voiding, dysuria, urinary frequency, urinary urgency or hematuria Musc: Reports: back pain (Chronic); Denies: neck pain Skin/Breast: Denies: rash or pruritus PFS ED PFSH: Medical History (Updated 11/09/21 @ 09:40 by Angel Costa DO) Chronic back pain Surgical History (Updated 11/09/21 @ 06:48 by Angel Costa DO) Previous section Social History (Updated 11/09/21 @ 06:48 by Angel Costa DO) Smoking and tobacco status: current every day smoker Alcohol intake: current Substance/Drug Use: current Substance/Drug use type: Methamphetamine Physical Exam Const: COMMON NORMALS: no acute distress GENERAL APPEARANCE: cooperative and comfortable ORIENTATION/CONSCIOUSNESS: Yes awake, Yes oriented to person, Yes oriented to place and Yes oriented to time HENMT: COMMON NORMALS: normocephalic and atraumatic HEAD & SCALP: normocephalic and atraumatic Neck/C-Spine: COMMON NORMALS: no JVD Resp: COMMON NORMALS: normal respiratory effort, No retractions, No use of accessory muscles and clear to auscultation bilaterally AUSCULTATION: clear to auscultation bilaterally Cardio: COMMON NORMALS: no JVD, regular rate, regular rhythm and No murmurs present (Cardio) RATE: regular rate RHYTHM: regular rhythm GI: COMMON NORMALS: Soft to palpation and No hepatosplenomegaly present AUSCULTATION: Yes normoactive bowel sounds PALPATION: Yes Soft to palpation, Yes Tenderness to palpation present (GI) (Epigastric), No Guarding due to palpation present (GI) and Yes No hepatosplenomegaly present Extremity: COMMON NORMALS: normal to inspection, capillary refill normal, no clubbing, cyanosis or edema, no calf tenderness and no pedal edema Neuro: SENSORIUM/ORIENTATION: Yes oriented to person, Yes oriented to place and Yes oriented to time Skin: COMMON NORMALS: no rashes or lesions noted GENERAL SKIN EXAM: no rashes or lesions noted Course Vital Signs: Vital signs: Vital Signs Temperature 97.7 F 11/09/21 05:27 Pulse Rate 63 11/09/21 06:37 Respiratory Rate 17 11/09/21 08:56 Blood Pressure 141/86 11/09/21 06:37 Pulse Oximetry 100 11/09/21 06:37 MDM - Abdominal Pain Medical Decision Making Abdominal pelvic pain improved. CT of the abdomen do not show anything acute White count is normal she is anemic but in reviewing her old labs this is a chronic issue. We will go ahead and discharge her home she does have a mild cystitis which we will treat clear liquid diet switch her to diclofenac. I suspect she may have ruptured a small ovarian cyst although we do not see any fluid on there she is not showing anything significant on this CT. Pelvic rest for 1 week. Medical Records I reviewed the patient's medical records. Lab Data I reviewed the patient's lab results. : 11/09/21 05:32 11/09/21 05:32 Labs/Radiology: Radiology Impressions Abdomen/Pelvis CT 11/09/21 06:03 IMPRESSION: No acute findings. Laboratory Results WBC 9.5 10^3/uL (4.0-10.0) 11/09/21 05:32 RBC 4.91 10^6/uL (4.1-5.3) 11/09/21 05:32 Hgb 8.8 g/dL (11.5-15.3) L 11/09/21 05:32 Hct 30.6 % (37.0-47.0) L 11/09/21 05:32 MCV 62.3 fl (81-99) L 11/09/21 05:32 MCH 17.9 pg (28.0-34.0) L 11/09/21 05:32 MCHC 28.8 g/dL (30.0-36.0) L 11/09/21 05:32 RDW 18.1 % (12.1-15.1) H 11/09/21 05:32 Plt Count 382 10^3/cmm (130-400) 11/09/21 05:32 MPV 9.0 fL (7.4-10.4) 11/09/21 05:32 Neut % (Auto) 64.2 % 11/09/21 05:32 Lymph % (Auto) 23.9 % 11/09/21 05:32 [place] % (Auto) 9.6 % 11/09/21 05:32 Eos % (Auto) 1.5 % 11/09/21 05:32 Baso % (Auto) 0.7 % 11/09/21 05:32 Neut # (Auto) 6.06 10^3/uL (1.8-7.7) 11/09/21 05:32 Lymph # (Auto) 2.3 10^3/uL (0.8-4.8) 11/09/21 05:32 [place] # (Auto) 0.9 10^3/uL (0.2-0.9) 11/09/21 05:32 Eos # (Auto) 0.1 10^3/uL (0.0-0.8) 11/09/21 05:32 Baso # (Auto) 0.1 10^3/uL (0.0-0.1) 11/09/21 05:32 Nucleated RBC % (auto) 0 % 11/09/21 05:32 Nucleated RBCs # 0.0 /100WBC 11/09/21 05:32 Sodium 134 mmol/L (136-145) L 11/09/21 05:32 Potassium 4.2 mmol/L (3.5-5.1) 11/09/21 05:32 Chloride 102 mmol/L (98-107) 11/09/21 05:32 Carbon Dioxide 23 mmol/L (22-29) 11/09/21 05:32 Anion Gap 13.2 (5-19) 11/09/21 05:32 BUN 13 mg/dL (6-20) 11/09/21 05:32 Creatinine 0.6 mg/dL (0.5-0.9) 11/09/21 05:32 GFR Calculation 114.4 mL/min (90-130) 11/09/21 05:32 Glucose 106 mg/dL (65-115) 11/09/21 05:32 Calculated Osmolality 279 mOsm/kg (285-295) L 11/09/21 05:32 Calcium 8.7 mg/dL (8.5-10.5) 11/09/21 05:32 Total Bilirubin 0.2 mg/dL (0.15-1.2) 11/09/21 05:32 AST 23 U/L (0-32) 11/09/21 05:32 ALT 27 U/L (0-33) 11/09/21 05:32 Alkaline Phosphatase 61 IU/L (35-105) 11/09/21 05:32 Total Protein 7.4 g/dL (6.6-8.7) 11/09/21 05:32 Albumin 4.2 g/dL (3.5-5.2) 11/09/21 05:32 Globulin 3.2 g/dL (1.3-4.6) 11/09/21 05:32 Lipase 29 U/L (13-60) 11/09/21 05:32 HCG, Qual Negative (Negative) 11/09/21 05:32 Urine Color Yellow (Yellow) 11/09/21 08:29 Urine Appearance Clear (CLEAR) 11/09/21 08:29 Urine pH 6 (5-7) 11/09/21 08:29 Ur Specific [place] 1.015 (1.005-1.030) 11/09/21 08:29 Urine Protein Neg (Negative) 11/09/21 08:29 Urine Glucose (UA) Norm (Normal) 11/09/21 08:29 Urine Ketones Negative (Negative) 11/09/21 08:29 Urine Blood Neg (Negative) 11/09/21 08:29 Urine Nitrate Negative (Negative) 11/09/21 08:29 Urine Bilirubin Neg (Negative) 11/09/21 08:29 Urine Urobilinogen Norm mg/dL (Negative) 11/09/21 08:29 Ur Leukocyte Esterase 2+ (Negative) H 11/09/21 08:29 Urine RBC 5-10 /hpf (0-2) H 11/09/21 08:29 Urine WBC 10-15 /hpf (0-5) H 11/09/21 08:29 Ur Squamous Epith Cells 10-15 /hpf (0-5) H 11/09/21 08:29 Amorphous Sediment Not Reportable 11/09/21 08:29 Urine Bacteria Trace /hpf (NONE) 11/09/21 08:29 Urine Mucus Trace /hpf 11/09/21 08:29 Discharge Plan Discharge Patient Disposition: Home Clinical Impression: Chronic back pain, Abdominal pain, Cystitis Condition: Stable Prescriptions: New diclofenac sodium 75 mg tablet,delayed release (DR/EC) 75 mg PO Q12H PRN (Reason: pain) Qty: 20 0RF promethazine 25 mg tablet 25 mg PO Q6H PRN (Reason: nausea and vomiting) Qty: 20 0RF sulfamethoxazole-trimethoprim [Bactrim DS] 800-160 mg tablet 1 tab PO BID 7 Days Qty: 14 0RF Discontinued naproxen sodium [Aleve] 220 mg Tablet 220 mg PO Q12H PRN (Reason: Pain) 0RF No Action Tylenol Ex Str Rapid Release 500 mg Tablet 1,000 mg PO Q6H PRN (Reason: Pain) 0RF Discharge Orders: Discharge ED (Routine); Ordered 11/09/21 Ordered By: Angel Costa Referrals: Manjeet Bray MD [Primary Care Provider] - Discharge Diet: Clear Liquid Discharge Activity: Increase activity as tolerated Patient Instructions: Abdominal Pain (ED), Opioid Safety Coding Level of Care Code ED Button Sewing Machine Operator for Chg Fwd Exam Comprehensive
[2021-11-09 08:56] VITALS: RESP 17
[2021-11-09] MEDS: morphine 4 mg/mL SDV 1 mL 2 MG IVP (08:56)
[2021-11-09 09:04] LABS: Add Urine Microscopic? YES; Bilirubin Urine Neg (Negative); Blood Urine Neg (Negative); Glucose Urine UA Norm (Normal); Ketones Urine Negative (Negative); Leukocyte Esterase Urine 2+ (Negative); Nitrate Urine Negative (Negative); Protein Urine Neg (Negative); Specific Gravity, Urine 1.015 (1.005-1.030); Urine Appearance Clear (CLEAR); Urine Color Yellow (Yellow); Urobilinogen Urine Norm (Negative); pH Urine 6 (5-7)
[2021-11-09 09:05] LABS: Add Urine Culture? No; Bacteria Urine TRACE /hpf; Mucus Urine TRACE /hpf
== END 2021-11-09 09:55 | disposition home or self-care (01) ==
PROVIDERS: Emergency Medicine; Emergency Provider Family Medicine; PCP Family Medicine
DX: N30.90 Cystitis, unspecified without hematuria (principal); R10.9 Unspecified abdominal pain; M54.9 Dorsalgia, unspecified; G89.29 Other chronic pain
CPT/HCPCS: 74176; 80053; 81001; 83690; 84703; 85025; 96374; 96375; 96376; 99284; J2270; J2405

== ENCOUNTER 2022-08-02 12:51 | Emergency (ER) | payer BC, MEDICAID, SELFPAY ==
[2022-08-02 13:03] VITALS: BP 132/80; PULSE 81; RESP 17; TEMP 36.4; O2SAT 100; BMI 22.3
--- NOTE | 2022-08-02 13:19 | CT_ITS ---
WS: [id number] CT ABDOMEN PELVIS TECHNIQUE: Contrast-enhanced CT of the abdomen and pelvis with coronal and sagittal reformatted image s. CLINICAL INFORMATION: recurrent lower abd/pelvis mass/bulge COMPARISON: CT November 09, 2021 DLP: 384.[address] scans at [facility] use at least one of these dose optimization techniques: automated e xposure control; mA and/or kV adjustment per patient size (includes targeted exams where dose is matc hed to clinical indication); or iterative reconstruction. FINDINGS: Tiny fat-containing umbilical hernia. Hepatomegaly diffuse fatty infiltration the liver. Normal greg l vein and splenic vein. Lung bases are well aerated. Normal gallbladder. Normal pancreatic parenchym al enhancement. Normal caliber abdominal aorta. Normal GE junction. Adrenal glands are normal. Normal renal parenchymal enhancement. No hydronephrosi s. Physiologic uterine enhancement with fluid or endometrial thickening. Normal sigmoid colon. No hig h-grade small or large bowel obstruction. Disc space narrowing L5-S1. CT/CT abdomen pelvis w con* [id number] IMPRESSION: 1. Normal bilateral renal parenchymal enhancement. No hydronephrosis. 2. Hepatomegaly with diffuse fatty infiltration liver. 3. Tiny fat-containing umbilical hernia. 4. Normal appendix in the RIGHT lower quadrant. 5. No acute findings in the abdomen or pelvis.
--- NOTE | 2022-08-02 13:20 | ED_ITS ---
HPI - Abdominal Pain General: Chief Complaint: Abdominal Pain Stated Complaint: urinary pain Time Seen by Provider: 08/02/22 13:09 Source: patient Mode of arrival: ambulatory Limitations: no limitations History of Present Illness: Patient is a nice 37-year-old female presents to ED today with a complaint of an intermittent right lower abdominal/pelvic mass/bulge that she has noticed over the past 3 weeks or so. She states when mass is present she will have discomfort across her lower abdomen and pelvis and has even noticed redness to her abdomen at times. She states mass will then seem to subside on its own thus relieving her discomfort. Patient states she is passing stool and flatulence normally. No urinary complaints. She states mass/bulge is at the right of her previous section scar. No nausea or vomiting. No fevers. MD elicited complaint: abdominal pain Pertinent past history: none Onset (ago): week(s) Pain Consistency: intermittent Location: RLQ and Pelvis Severity: moderate Quality: sharp Radiation: none Migration to: no migration Exacerbating factors: other (lifting, exertion, sitting up) Relieving factors: nothing Associated Symptoms: Reports no associated symptoms; Denies bloating, change in bowel habits, chills, diarrhea, dysuria, fever(s), hematochezia, hematuria, melena, nausea and vomiting Related Data: Patient : No Review of Systems Const: Denies: fever(s), chills, body aches, fatigue or malaise Card: Denies: chest pain Resp: Denies: dyspnea GI: Reports: abdominal pain; Denies: nausea, vomiting, diarrhea, bloating, change in bowel habits, pain on defecation, rectal pain, hematochezia, melena or mucus in stool : Denies: flank pain, dysuria, hematuria, vaginal odor, vaginal bleeding or vaginal discharge Musc: Denies: back pain Neuro: Denies: headache(s), numbness in extremities, weakness in extremities, sensory changes or dizziness PFSH ED PFSH: Medical History Chronic back pain Surgical History Previous section Social History Smoking and tobacco status: current every day smoker Alcohol intake: current Physical Exam Const: COMMON NORMALS: no acute distress, average body habitus, patient oriented x3, no limitations, healthy appearing, alert and well nourished GENERAL APPEARANCE: cooperative ORIENTATION/CONSCIOUSNESS: Yes awake, Yes oriented to person, Yes oriented to place and Yes oriented to time Resp: COMMON NORMALS: normal respiratory effort and clear to auscultation bilaterally AUSCULTATION: clear to auscultation bilaterally Cardio: COMMON NORMALS: regular rate and regular rhythm RATE: regular rate RHYTHM: regular rhythm GI: COMMON NORMALS: Normal to inspection, nondistended, normoactive bowel sounds present, Soft to palpation, No hepatosplenomegaly present and no masses INSPECTION: Yes normal to inspection AUSCULTATION: Yes normoactive bowel sounds PALPATION: Yes Soft to palpation, No Guarding due to palpation present (GI), No Rigid due to palpation and Yes No hepatosplenomegaly present OTHER: pt is seated in a recliner in which is not ideal for an abdominal examination; she seems to have some mild discomfort to the R of her section scar; there is no mass/bulge palpable; I do not appreciate any obvious abdominal defects : COMMON NORMALS: Yes no CVA tenderness BLADDER/KIDNEY EXAM: Yes no CVA tenderness Back/Pelvis: COMMON NORMALS: no CVA tenderness Extremity: COMMON NORMALS: normal to inspection GENERAL: Yes normal exam except as noted Neuro: TED COMA SCALE: document GCS findings Ted coma scale eye opening: Spontaneous Ted coma scale verbal response: Orientated [place] coma scale motor response: Obey commands [place] coma scale total score: 15 COMMON NORMALS: patient oriented x3 SENSORIUM/ORIENTATION: Yes alert, Yes oriented to person, Yes oriented to place and Yes oriented to time Skin: COMMON NORMALS: no rashes or lesions noted GENERAL SKIN EXAM: no rashes or lesions noted Course Vital Signs: Vital signs: Vital Signs Temperature 97.5 F L 08/02/22 13:03 Pulse Rate 81 08/02/22 13:03 Respiratory Rate 17 08/02/22 13:03 Blood Pressure 132/80 08/02/22 13:03 Pulse Oximetry 100 08/02/22 13:03 Oxygen Delivery Me thod 08/02/22 13:03 MDM - Abdominal Pain Medical Decision Making CT ab/pelvis negative. No incarcerated/strangulated hernias were appreciated on my exam. Hernia possible just reduced at the moment. She appears in no acute distress. Vital signs are stable. Blood work is unremarkable. We will go ahead and place a referral to Dr. Abraham for evaluation of a possible incisional hernia. Strict return to ED precautions given. Lab Data 08/02/22 14:04 08/02/22 14:04 Labs/Radiology: Radiology Impressions Abdomen/Pelvis CT 08/02/22 13:19 IMPRESSION: 1. Normal bilateral renal parenchymal enhancement. No hydronephrosis. 2. Hepatomegaly with diffuse fatty infiltration liver. 3. Tiny fat-containing umbilical hernia. 4. Normal appendix in the RIGHT lower quadrant. 5. No acute findings in the abdomen or pelvis. Laboratory Results WBC 7.2 10^3/uL (4.0-10.0) 08/02/22 14:04 RBC 5.09 10^6/uL (4.1-5.3) 08/02/22 14:04 Hgb 11.1 g/dL (11.5-15.3) L 08/02/22 14:04 Hct 37.7 % (37.0-47.0) 08/02/22 14:04 MCV 74.1 fl (81-99) L 08/02/22 14:04 MCH 21.8 pg (28.0-34.0) L 08/02/22 14:04 MCHC 29.4 g/dL (30.0-36.0) L 08/02/22 14:04 RDW 19.1 % (12.1-15.1) H 08/02/22 14:04 Plt Count 277 10^3/cmm (130-400) 08/02/22 14:04 MPV 9.7 fL (7.4-10.4) 08/02/22 14:04 Neut % (Auto) 58.6 % 08/02/22 14:04 Lymph % (Auto) 27.5 % 08/02/22 14:04 Josephine % (Auto) 11.5 % 08/02/22 14:04 Eos % (Auto) 1.7 % 08/02/22 14:04 Baso % (Auto) 0.6 % 08/02/22 14:04 Neut # (Auto) 4.23 10^3/uL (1.8-7.7) 08/02/22 14:04 Lymph # (Auto) 2.0 10^3/uL (0.8-4.8) 08/02/22 14:04 Josephine # (Auto) 0.8 10^3/uL (0.2-0.9) 08/02/22 14:04 Eos # (Auto) 0.1 10^3/uL (0.0-0.8) 08/02/22 14:04 Baso # (Auto) 0.0 10^3/uL (0.0-0.1) 08/02/22 14:04 Nucleated RBC % (auto) 0 % 08/02/22 14:04 Nucleated RBCs # 0.0 /100WBC 08/02/22 14:04 Sodium 137 mmol/L (136-145) 08/02/22 14:04 Potassium 4.3 mmol/L (3.5-5.1) 08/02/22 14:04 Chloride 102 mmol/L (98-107) 08/02/22 14:04 Carbon Dioxide 25 mmol/L (22-29) 08/02/22 14:04 Anion Gap 14.3 (5-19) 08/02/22 14:04 BUN 8 mg/dL (6-20) 08/02/22 14:04 Creatinine 0.7 mg/dL (0.5-0.9) 08/02/22 14:04 GFR Calculation 95.2 mL/min (90-130) 08/02/22 14:04 Glucose 79 mg/dL (65-115) 08/02/22 14:04 Calculated Osmolality 281 mOsm/kg (285-295) L 08/02/22 14:04 Calcium 8.6 mg/dL (8.5-10.5) 08/02/22 14:04 Total Bilirubin 0.2 mg/dL (0.15-1.2) 08/02/22 14:04 AST 19 U/L (0-32) 08/02/22 14:04 ALT 15 U/L (0-33) 08/02/22 14:04 Alkaline Phosphatase 65 U/L (35-105) 08/02/22 14:04 Total Protein 7.1 g/dL (6.6-8.7) 08/02/22 14:04 Albumin 3.7 g/dL (3.5-5.2) 08/02/22 14:04 Globulin 3.4 g/dL (1.3-4.6) 08/02/22 14:04 HCG, Qual Negative (Negative) 08/02/22 14:04 Discharge Plan Discharge Patient Disposition: Home Clinical Impression: Intermittent right lower quadrant abdominal pain Condition: Stable Prescriptions: No Action Tylenol Ex Str Rapid Release 500 mg Tablet 1,000 mg PO Q6H PRN (Reason: Pain) diclofenac sodium 75 mg tablet,delayed release (DR/EC) 75 mg PO Q12H PRN (Reason: pain) Qty: 20 0RF promethazine 25 mg tablet 25 mg PO Q6H PRN (Reason: nausea and vomiting) Qty: 20 0RF Discharge Orders: Discharge ED (Routine); Ordered 08/02/22 Ordered By: Sherly Sanches Referrals: Manjeet Bray MD [Primary Care Provider] - Patient Instructions: Abdominal Pain (ED) Activity Restrictions/Additional Instructions: As we discussed we will place a referral to Dr. Abraham for further evaluation of a possible incisional hernia. Need to return to the emergency department if mass/bulge appears again and cannot be reduced or if you begin having abdominal pain, inability to have a bowel movement or pass gas, fevers, redness to the abdomen, or any other concerns you may have. Coding Level of Care Code ED Expert Medical Writer for Yunior Villagomez
[2022-08-02 13:54] LABS: HCG Qualitative Urine. Negative (Negative)
[2022-08-02] MEDS: iohexol 350 mg/mL 500 mL Btl (per mL) IV (14:12)
[2022-08-02 14:15] LABS: Basophils % 0.6 %; Eosinophils # 0.1 10^3/uL (0.0-0.8); Eosinophils % 1.7 %; Hematocrit 37.7 % (37.0-47.0); Hemoglobin 11.1 g/dL (11.5-15.3); Lymphocytes % 27.5 %; Mean Corpuscular HGB Conc 29.4 g/dL (30.0-36.0); Mean Corpuscular Hemoglobin 21.8 pg (28.0-34.0); Mean Corpuscular Volume 74.1 fl (81-99); Mean Platelet Volume 9.7 fL (7.4-10.4); Monocytes # 0.8 10^3/uL (0.2-0.9); Monocytes % 11.5 %; Neutrophils # 4.23 10^3/uL (1.8-7.7); Neutrophils % 58.6 %; Nucleated Red Blood Cells % 0 %; Platelet Count 277 10^3/cmm (130-400); Red Blood Count 5.09 10^6/uL (4.1-5.3); Red Cell Distribution Width 19.1 % (12.1-15.1); White Blood Count 7.2 10^3/uL (4.0-10.0)
[2022-08-02 14:40] LABS: HCG, Serum Qual Negative (Negative)
[2022-08-02 14:44] LABS: Alanine Aminotransferase 15 U/L (0-33); Albumin Level 3.7 g/dL (3.5-5.2); Alkaline Phosphatase 65 U/L (35-105); Aspartate Amino Transferase 19 U/L (0-32); Blood Urea Nitrogen 8 mg/dL (6-20); Calcium 8.6 mg/dL (8.5-10.5); Carbon Dioxide 25 mmol/L (22-29); Chloride 102 mmol/L (98-107); Globulin 3.4 g/dL (1.3-4.6); Glomerular Filtration Rate 95.2 mL/min (90-130); Glucose 79 mg/dL (65-115); Osmolality Calculated 281 mOsm/kg (285-295); Sodium 137 mmol/L (136-145); Total Bilirubin 0.2 mg/dL (0.15-1.2); Total Protein 7.1 g/dL (6.6-8.7)
[2022-08-02 14:47] LABS: Anion Gap 14.3 (5-19); Potassium 4.3 mmol/L (3.5-5.1)
--- NOTE | 2022-08-03 10:37 | DCPLANNER ---
Addendum entered by Lilia Ozuna 09/01/22 14:45: Patient had a follow up appointment scheduled with general surgery - patient did not attend appointment Addendum entered by Lilia Ozuna 08/06/22 08:06: Patient has a follow up appointment scheduled for Wednesday, August 31, 2022 at 2:[address] Abraham at general surgery. Clinic will call patient with appointment information. Original Note: it application development manager had message to schedule a follow up appointment for patient with general surgery. it application development manager sent patients information to the front office staff at general surgery. Patients information will be printed and reviewed. Clinic will call patient with appointment information.
== END 2022-08-02 15:16 | disposition home or self-care (01) ==
PROVIDERS: Emergency Medicine; Emergency Provider Physician Assistant; PCP Family Medicine
DX: R10.31 Right lower quadrant pain (principal); F17.210 Nicotine dependence, cigarettes, uncomplicated
CPT/HCPCS: 36415; 74177; 80053; 81025; 84703; 85025; 99285; Q9967

== ENCOUNTER 2022-10-08 22:10 | Emergency (ER) | payer BC, MEDICAID, SELFPAY ==
[2022-10-08 22:12] VITALS: BP 132/103; PULSE 121; RESP 28; TEMP 36.8; O2SAT 99; BMI 23.1
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
[2022-10-08] MEDS: ondansetron 2 mg/ML SDV 2 mL 4 MG IVP (22:16)
[2022-10-08] MEDS: fentaNYL 50 mcg/mL INJ 2mL 100 MCG IVP (22:16)
[2022-10-08] MEDS: sodium chloride 0.9% 1,000 ML 999 ML IV (22:24)
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
[2022-10-08] MEDS: iohexol 350 mg/mL 500 mL Btl (per mL) IV (22:48)
[2022-10-08 22:57] LABS: Basophils % 0.2 %; Eosinophils % 0.2 %; Hematocrit 33.3 % (37.0-47.0); Hemoglobin 10.1 g/dL (11.5-15.3); Mean Corpuscular HGB Conc 30.3 g/dL (30.0-36.0); Mean Corpuscular Hemoglobin 22.7 pg (28.0-34.0); Mean Corpuscular Volume 74.8 fl (81-99); Mean Platelet Volume 9.1 fL (7.4-10.4); Monocytes # 0.8 10^3/uL (0.2-0.9); Monocytes % 5.5 %; Neutrophils # 11.89 10^3/uL (1.8-7.7); Neutrophils % 85.5 %; Nucleated Red Blood Cells % 0 %; Platelet Count 251 10^3/cmm (130-400); Red Blood Count 4.45 10^6/uL (4.1-5.3); Red Cell Distribution Width 17.7 % (12.1-15.1); White Blood Count 13.9 10^3/uL (4.0-10.0)
[2022-10-08 22:59] LABS: Protein Urine 3+ (Negative); Specific Gravity, Urine 1.025 (1.005-1.030); Urine Appearance Hazy (CLEAR); Urine Color Orange (Yellow); pH Urine 5 (5-7)
[2022-10-08 23:00] LABS: Add Urine Microscopic? YES; Bilirubin Urine 1+ (Negative); Blood Urine 3+ (Negative); Leukocyte Esterase Urine Trace (Negative); Nitrate Urine Positive (Negative); Urobilinogen Urine Norm (Negative)
[2022-10-08 23:01] LABS: ABG PH Result 7.32 (7.35-7.45); Arterial Blood Gas Hematocrit 31.4 % (37-47); Base Excess ABG -4.1 mmol/L (-2.0-2.0); Blood Gas Allen Test Pos; Blood Gas Sample Site Brachial, left; Blood Gas Sample Type Arterial; HCO3 ABG 21.9 mmol/L (22-26); PO2 ABG 80.3 mmHg (80.0-100.0)
[2022-10-08 23:08] LABS: Amphetamines Screen Urine Positive (Negative); Barbiturates Screen Urine Negative (Negative); Benzodiazepines Screen Urine Negative (Negative); Cocaine Screen Urine Negative (Negative); Opiate Screen Urine Negative (Negative); PCP Screen Urine Negative (Negative); THC Screen Urine Negative (Negative)
[2022-10-08 23:10] LABS: Add Urine Culture? Yes; Bacteria Urine 3+ /hpf; RBC Urine 15-25 /hpf (0-2)
[2022-10-08 23:11] LABS: HCG, Serum Qual Negative (Negative)
[2022-10-08 23:12] VITALS: BP 143/86; PULSE 96; RESP 25; O2SAT 99
[2022-10-08 23:13] LABS: INR 1.32 (0.8-1.2)
[2022-10-08 23:23] LABS: Alanine Aminotransferase 39 U/L (0-33); Albumin Level 3.4 g/dL (3.5-5.2); Alkaline Phosphatase 58 U/L (35-105); Anion Gap 16.7 (5-19); Aspartate Amino Transferase 64 U/L (0-32); Blood Urea Nitrogen 12 mg/dL (6-20); Calcium 8.2 mg/dL (8.5-10.5); Carbon Dioxide 20 mmol/L (22-29); Chloride 101 mmol/L (98-107); Globulin 2.8 g/dL (1.3-4.6); Glomerular Filtration Rate 63.1 mL/min (90-130); Glucose 139 mg/dL (65-115); Osmolality Calculated 280 mOsm/kg (285-295); Potassium 3.7 mmol/L (3.5-5.1); Sodium 134 mmol/L (136-145); Total Bilirubin 0.4 mg/dL (0.15-1.2); Total Protein 6.2 g/dL (6.6-8.7)
[2022-10-08 23:25] LABS: Creatine Phosphokinase 484 U/L (26-192)
[2022-10-10 17:03] LABS: Glucose Point of Care 128 mg/dL (70-110)
== END 2022-10-08 23:49 | disposition short-term general hospital (02) ==
PROVIDERS: Emergency Provider Emergency Medicine; PCP Family Medicine
DX: S06.6XAA Traumatic subarachnoid hemorrhage with loss of consciousness status unknown, initial encounter (principal); S02.119A Unspecified fracture of occiput, initial encounter for closed fracture; S22.42XA Multiple fractures of ribs, left side, initial encounter for closed fracture; S32.10XA Unspecified fracture of sacrum, initial encounter for closed fracture; S42.112A Displaced fracture of body of scapula, left shoulder, initial encounter for closed fracture; S32.512A Fracture of superior rim of left pubis, initial encounter for closed fracture; S32.511A Fracture of superior rim of right pubis, initial encounter for closed fracture; S32.049A Unspecified fracture of fourth lumbar vertebra, initial encounter for closed fracture; S32.059A Unspecified fracture of fifth lumbar vertebra, initial encounter for closed fracture; F17.210 Nicotine dependence, cigarettes, uncomplicated; V13.4XXA Pedal cycle driver injured in collision with car, pick-up truck or van in traffic accident, initial encounter
CPT/HCPCS: 36415; 36416; 36600; 70450; 71260; 72125; 73060; 73090; 74177; 80053; 80306; 81001; 82550; 82803; 82962; 84703; 85025; 85610; 85730; 87077; 87086; 87186; 96361; 96374; 96375; 99291; J2405; J3010; J7030; Q9967

== ENCOUNTER 2022-10-26 06:14 | Emergency (ER) | payer BC, MEDICAID, SELFPAY ==
[2022-10-26 06:15] VITALS: BMI 22.3
[2022-10-26 06:20] VITALS: BP 134/77; PULSE 90; RESP 16; TEMP 36.6; O2SAT 100
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
[2022-10-26] MEDS: HYDROcodone-acetaminophen 5-325 mg Tablet 1 TAB PO (07:07)
== END 2022-10-26 09:09 | disposition home or self-care (01) ==
PROVIDERS: Emergency Provider Emergency Medicine; PCP Family Medicine
DX: M25.512 Pain in left shoulder (principal)
CPT/HCPCS: 99283

== ENCOUNTER 2022-10-29 14:28 | Emergency (ER) | payer BC, MEDICAID, SELFPAY ==
[2022-10-29 14:32] VITALS: BP 127/73; PULSE 103; RESP 15; TEMP 37.1; O2SAT 99
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
--- NOTE | 2022-10-29 14:37 | XR_ITS ---
WS: [id number] Exam: XR femur RT min 2V* [id number] Date/Time of Exam: 10/29/2022 2:57 PM Reason For Exam: fall No fracture or dislocation of the right femur. Normal soft tissues. Again noted is a hardware and ext ernal fixator in the visualized right pelvis. Partially visualized fracture of the right superior pub ic ramus noted. XR/XR femur RT min 2V* [id number] IMPRESSION: 1. No acute femoral fracture identified. 2. Fractured right superior pubic ramus partially visualized.
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
[2022-10-29] MEDS: morphine 4 mg/mL SDV 1 mL IVP (15:45)
[2022-10-29] MEDS: ondansetron 2 mg/ML SDV 2 mL 4 MG IVP (15:45)
[2022-10-29 15:48] VITALS: BP 115/65; PULSE 91; O2SAT 99
[2022-10-29 16:37] VITALS: BP 110/69; PULSE 82; O2SAT 99
[2022-10-29 17:19] VITALS: BP 110/68; PULSE 75; O2SAT 98
== END 2022-10-29 17:20 | disposition home or self-care (01) ==
PROVIDERS: Emergency Provider Emergency Medicine; PCP Family Medicine
DX: M25.551 Pain in right hip (principal); F17.210 Nicotine dependence, cigarettes, uncomplicated
CPT/HCPCS: 73502; 73552; 96374; 96375; 99284; J2270; J2405

== ENCOUNTER 2022-11-09 15:10 | Emergency (ER) | payer BC, MEDICAID, SELFPAY ==
[2022-11-09 15:41] VITALS: BP 119/73; PULSE 86; RESP 14; TEMP 36.8; O2SAT 99; BMI 22.3
[2022-11-09 16:02] LABS: Basophils % 0.4 %; Eosinophils # 0.2 10^3/uL (0.0-0.8); Eosinophils % 1.4 %; Hematocrit 36.8 % (37.0-47.0); Hemoglobin 10.9 g/dL (11.5-15.3); Lymphocytes # 1.6 10^3/uL (0.8-4.8); Lymphocytes % 14.8 %; Mean Corpuscular HGB Conc 29.6 g/dL (30.0-36.0); Mean Corpuscular Hemoglobin 24.3 pg (28.0-34.0); Mean Corpuscular Volume 82.1 fl (81-99); Mean Platelet Volume 9.3 fL (7.4-10.4); Monocytes # 0.8 10^3/uL (0.2-0.9); Monocytes % 7.2 %; Neutrophils # 8.41 10^3/uL (1.8-7.7); Neutrophils % 75.7 %; Nucleated Red Blood Cells % 0 %; Platelet Count 476 10^3/cmm (130-400); Red Blood Count 4.48 10^6/uL (4.1-5.3); Red Cell Distribution Width 19.6 % (12.1-15.1); White Blood Count 11.1 10^3/uL (4.0-10.0)
[2022-11-09 16:17] LABS: HCG, Serum Qual Negative (Negative)
[2022-11-09 16:24] LABS: Alanine Aminotransferase 10 U/L (0-33); Alkaline Phosphatase 144 U/L (35-105); Anion Gap 15.1 (5-19); Aspartate Amino Transferase 13 U/L (0-32); Blood Urea Nitrogen 9 mg/dL (6-20); Calcium 8.9 mg/dL (8.5-10.5); Carbon Dioxide 26 mmol/L (22-29); Chloride 101 mmol/L (98-107); Globulin 4.4 g/dL (1.3-4.6); Glomerular Filtration Rate 181.6 mL/min (90-130); Glucose 83 mg/dL (65-115); Lipase 28 U/L (13-60); Osmolality Calculated 284 mOsm/kg (285-295); Potassium 4.1 mmol/L (3.5-5.1); Sodium 138 mmol/L (136-145); Total Bilirubin 0.2 mg/dL (0.15-1.2); Total Protein 8.4 g/dL (6.6-8.7)
--- NOTE | 2022-11-09 18:14 | XRR_ITS ---
PROCEDURE INFORMATION: Exam: XR Pelvis Exam date and time: 11/09/2022 6:20 PM Age: 37 years old Clinical indication: Pelvic pain; Prior surgery; Surgery date: <1 month; Surgery type: Ex. Fix. ; Additional info: Injury, fell had surgery in September TECHNIQUE: Imaging protocol: Radiologic exam of the pelvis. Views: 1 or 2 view. COMPARISON: CT chest abdpel w/*[id number] 10/08/2022 10:28 PM FINDINGS: Tubes, catheters and devices: Postsurgical change with external fixation hardware is seen about the mid to lower pelvis, along with orthopedic screws extending across the sacroiliac region from [id number]. Postsurgical hardware for stabilization of complex left sacral fracture as well as mildly complex fractures of both sides of the lower pelvis suggestion of ongoing healing and satisfactory alignment and position, with mild residual deformity of the lower pelvic fractures and particularly on the left. Hip joints appear maintained. Sacroiliac joints and pubic symphysis appear maintained. Bones/joints: See Tubes, catheters and devices finding. Soft tissues: Soft tissues show no significant focal abnormality. XR/XR pelvis 1-2V* [id number] IMPRESSION: Postsurgical change with external fixation hardware about the mid to lower pelvis and orthopedic screws about the sacroiliac region within the upper pelvis, for fracture stabilization as noted above.
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
[2022-11-09] MEDS: HYDROcodone-acetaminophen 5-325 mg Tablet 1 TAB PO (18:41)
[2022-11-09 20:28] VITALS: BP 130/76; PULSE 77; RESP 16; O2SAT 99
== END 2022-11-09 20:29 | disposition home or self-care (01) ==
PROVIDERS: Physician Assistant; Emergency Provider Emergency Medicine; PCP Family Medicine
DX: M25.551 Pain in right hip (principal); F17.210 Nicotine dependence, cigarettes, uncomplicated
CPT/HCPCS: 36415; 72170; 80053; 83690; 84703; 85025; 99284

== ENCOUNTER 2023-08-29 09:49 | Emergency (ER) | payer SELFPAY ==
[2023-08-29 10:04] VITALS: BP 144/96; PULSE 84; RESP 16; TEMP 37.1; O2SAT 100; BMI 29.7
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
[2023-08-29] MEDS: dexamethasone 10 mg/mL INJ 8 MG IM (11:39)
[2023-08-29] MEDS: ketorolac 60 mg/2 mL INJ IM (11:42)
[2023-08-29 11:44] VITALS: BP 134/77; PULSE 78; O2SAT 100
[2023-08-29 11:55] VITALS: BP 137/93; PULSE 74; O2SAT 100
== END 2023-08-29 11:56 | disposition home or self-care (01) ==
PROVIDERS: Emergency Provider Physician Assistant; PCP Nurse Practitioner Family
DX: M25.512 Pain in left shoulder (principal); Z72.0 Tobacco use
CPT/HCPCS: 96372; 99284; J1100; J1885

== ENCOUNTER 2023-12-15 13:05 | Outpatient (CLI) | payer MEDICAID, SELFPAY ==
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
== END 2023-12-15 13:06 | disposition home or self-care (01) ==
LOC: RAD 13:06
PROVIDERS: PCP Nurse Practitioner Family; Visit Provider Nurse Practitioner Family
DX: R07.81 Pleurodynia (principal); M25.512 Pain in left shoulder; Z87.81 Personal history of (healed) traumatic fracture
CPT/HCPCS: 71046; 73030

== ENCOUNTER → 2024-03-27 11:41 | Outpatient (BNVA) | payer MEDICAID, SELFPAY | PROVIDERS: PCP Nurse Practitioner Family; Referring Provider Nurse Practitioner Family; Visit Provider Psychiatry & Neurology Neurology | DX: R56.9 Unspecified convulsions (principal) | CPT/HCPCS: 36415; 80164 ==

== ENCOUNTER 2024-04-11 12:06 | Outpatient (CLI) | payer MEDICAID, SELFPAY ==
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
[2024-04-11] MEDS: iohexol 350 mg/mL 500 mL Btl (per mL) IV (13:26)
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
== END 2024-04-11 12:07 | disposition home or self-care (01) ==
LOC: RAD 12:07
PROVIDERS: PCP Nurse Practitioner Family; Visit Provider Psychiatry & Neurology Neurology
DX: Z87.820 Personal history of traumatic brain injury (principal); Z87.81 Personal history of (healed) traumatic fracture
CPT/HCPCS: 70470; 70496; 70498

== ENCOUNTER → 2024-07-17 10:13 | Outpatient (BNVA) | payer MEDICAID, BC, SELFPAY | PROVIDERS: PCP Family Medicine; Visit Provider Clinical Nurse Specialist Adult Health | DX: J06.9 Acute upper respiratory infection, unspecified (principal); Z87.09 Personal history of other diseases of the respiratory system | CPT/HCPCS: 87400; 87426 ==

== ENCOUNTER → 2024-08-06 15:18 | Outpatient (BNVA) | payer MEDICAID, SELFPAY | PROVIDERS: PCP Family Medicine; Visit Provider Psychiatry & Neurology Neurology | DX: R56.9 Unspecified convulsions (principal) | CPT/HCPCS: 36415; 80164 ==

== ENCOUNTER 2024-09-26 06:00 | Outpatient (CLI) | payer MEDICAID, SELFPAY | END 2024-09-26 06:01 | disposition home or self-care (01) | LOC: LAB 09-28 16:00 | PROVIDERS: PCP Family Medicine; Visit Provider Psychiatry & Neurology Neurology | DX: R56.9 Unspecified convulsions (principal) | CPT/HCPCS: 36415; 80076; 80164; 82150; 83690; 85025 ==

== ENCOUNTER 2024-10-16 07:57 | Outpatient (CLI) | payer MEDICAID, SELFPAY ==
--- NOTE | 2024-10-16 07:59 | NM_ITS ---
WS: [id number] NUCLEAR MEDICINE HIDA SCAN WITH GALLBLADDER EJECTION FRACTION HISTORY: RUQ PAIN COMPARISON: Gallbladder ultrasound 09/20/2024 TECHNIQUE: The patient was intravenously injected with 7.9 mCi of TC99m Mebrofenin. Immediate imaging over the right upper quadrant was followed by 5 minute image and additional images for a total of 60 minutes. Normal uptake of radiotracer throughout the liver. Activity identified in the gallbladder at 10 minutes and well distended by 60 minutes. Activity in the proximal small bowel was seen by 20 minutes. Good washout of the radiotracer from the liver by 60 minutes. The patient then drank 8 ounces of Ensure Plus. Ejection fraction at 60 minutes was 89%. Normal GB ejection fraction is 35-75%. Post fatty meal symptoms: None. NM/NM hepatobiliary w phar* [id number] IMPRESSION: 1. Normal HIDA scan. 2. Normal gallbladder ejection fraction.
== END 2024-10-16 07:58 | disposition home or self-care (01) ==
PROVIDERS: PCP Family Medicine; Visit Provider Family Medicine
DX: R10.11 Right upper quadrant pain (principal)
CPT/HCPCS: 36415; 78227; 80076; 80164; 82150; 83690; 85025; A9537

== ENCOUNTER 2024-12-13 09:55 | Outpatient (CLI) | payer MEDICAID, SELFPAY ==
[2024-12-13 10:14] VITALS: BMI 39.4
--- NOTE | 2024-12-13 10:15 | NMCV_ITS ---
NM manuel perf SPECT r/s* [id number] Lupe Florez Age: 39 Gender: F : 1985 Exam Date: 12/13/2024 11:18 Ordering Phys: Manjeet Bray MD Technologist: DAWNA Matias Exam Location: [facility] Indications: cp STRESS TEST Please see separate stress test report in [facility] for full findings IMAGE PROTOCOL Rest/Stress 1 Lexiscan Day Radiopharmaceutical Dose (mCi) Administration Site Administered by Rest: Tc-99m 10.2 IV Zakiya Siu, COMPUTER HARDWARE ENGINEER Sestamibi Stress:Tc-99m 32.9 IV Zakiya Younggle, COMPUTER HARDWARE ENGINEER Sestamibi Rest: 13-Dec-2024 60 Discovery 630 Stress: 13-Dec-2024 30 Discovery 630 0.4mg Lexiscan. Images obtained in supine and prone position. SPECT RESULTS Technical Quality: Good Raw Data Analysis: Normal Image Corrections: No attenuation or motion correction applied Summed Stress Score: 2 Summed Rest Score: 1 Summed Difference Score: 1 PERFUSION FINDINGS There is a small area of partially reversible perfusion defect seen in the inferolateral wall. This is consistent with small area of prior infarct with minimal katy-infarct ischemia in this territory. FUNCTIONAL RESULTS (calculated via Gated SPECT) Stress Image LV EF (%): 81 Stress EDV (mL):99 TID: 0.87 Stress ESV (mL):19 FUNCTIONAL FINDINGS: There is normal left ventricular systolic function. IMPRESSIONS 1. Small area of prior infarct with minimal katy-infarct ischemia seen in inferolateral wall. 2. LV systolic function is normal. Harvey Patterson MD (Electronically Signed) Final Date: 14 December 2024 09:08 S
--- NOTE | 2024-12-13 10:15 | ECG_ITS ---
Adform Volve Test Date: 2024-12-13 Pat Name: Lupe Florez Department: Room: Gender: Female Experiential Therapist: : 1985 Requested By: Manjeet Ramos Order Number: [id number] Yael MD: Harvey Patterson M.D. Interpretive Statements LEXISCAN SESTAMIBI STRESS TEST Procedure: At the baseline, the blood pressure was 137/94 mmHg with a heart rate of 66 bpm. The electrocardiogram showed normal sinus rhythm, normal axis with normal ST and T's. The Lexiscan was infused over a period of 20 seconds. A total of 0.4 mg of Lexiscan was infused. The stress phase was continued for a total of 5 minutes. Heart rate was at the end of stress phase was 90 bpm and a blood pressure of 150/91 mmHg. The EKG at the peak infusion revealed normal sinus rhythm with no significant ST-T wave changes. Sestamibi was injected 20 seconds after the Lexiscan infusion. Blood pressure at the end of recovery phase was 138/86 mmHg with a heart rate of 83 bpm. Conclusion: 1. Normal EKG response to Lexiscan infusion 2. No Lexiscan induced chest pain or cardiac arrhythmia. 3. Normal blood pressure and heart rate response. 4. Sestamibi/sestamibi perfusion scan pending; see separate report. Electronically Signed On 12-24-2024 11:50:52 CDT by Harvey Patterson M.D. [email or web address]
[2024-12-13 12:10] VITALS: BP 137/94; PULSE 70
== END 2024-12-13 09:56 | disposition home or self-care (01) ==
LOC: CDL 09:55
PROVIDERS: PCP Family Medicine; Visit Provider Family Medicine
DX: R06.09 Other forms of dyspnea (principal); R93.1 Abnormal findings on diagnostic imaging of heart and coronary circulation
CPT/HCPCS: 36415; 78452; 93017; 96374; A9500; J2785

== ENCOUNTER → 2025-01-03 16:25 | Outpatient (BNVA) | payer MEDICAID, SELFPAY | PROVIDERS: PCP Family Medicine; Visit Provider Internal Medicine Cardiovascular Disease | DX: R58 Hemorrhage, not elsewhere classified (principal); R94.39 Abnormal result of other cardiovascular function study; R07.9 Chest pain, unspecified; R00.2 Palpitations | CPT/HCPCS: 36415; 80048; 85025; 85610 ==

== ENCOUNTER 2025-01-11 06:04 | Outpatient (CLI) | payer MEDICAID, SELFPAY ==
[2025-01-11] VITALS (21 sets, daily range): BP systolic 99–156; BP diastolic 61–93; PULSE 54–80; RESP 13–20; TEMP 36.6; O2SAT 93–97; BMI 42.4
--- NOTE | 2025-01-11 06:00 | XACV_ITS ---
Ht: 163 cm Wt: 112 kg BSA: 2.31 m2 Gender: Female : 1985 Any Known Allergies: Other Exam Priority: Routine Procedure(s): Procedure Description: Diagnostic procedure Procedure Description: Left Heart Catheterization Procedure Description: Left ventriculography Procedure Description: Coronary Angiography Apolinar BRIONES; Diagnostic Findings * No disease noted in the Left Main, Left Anterior Descending, Right, or Circumflex coronary arteries. * Coronary angiography shows right dominance. Conclusions 1. No disease noted in the Left Main, Left Anterior Descending, Right, or Circumflex coronary arteries. 2. Normal left ventricular systolic function. Ejection fraction of 65%. 3. a. Recommendations * Continue current medical management and risk factor modification. * Possible coronary spasm, add isosorbide mononitrate. Advised quitting smoking. * Left ventricular end-diastolic pressure was elevated, good blood pressure control losing weight adding NICK ARB and nitroglycerin long-acting is recommended.. Diagnostic RX Recommendation: medical therapy and/or counseling LV EDP: 37 mmHg Ventriculography Ejection Fraction: 65.0 % Pressures Phase:Rest AO : 156 / 96 ( 120 ) @ 8:45:00 AM 154 / 76 ( 121 ) @ 8:53:00 AM 177 / 97 ( 121 ) @ 8:53:00 AM 183 / 101 ( 135 ) @ 8:54:00 AM LV : 186 / 15 / 32 @ 8:52:00 AM 194 / -1 31 @ 8:53:00 AM 185 / -1 31 @ 8:53:00 AM Valves Phase:DefaultPhase AV : 31.0 @ 8:01:23 AM AV Mean Gradient: 22.0 @ 8:01:23 AM Clinical Evaluation EBL: 5mL-10mL Procedural Details Pre-Procedure Time Out. Identified patient by full name and date of as verbalized by the patient/guarantor. Does the consent match the physician's order: Yes. Accurate & Complete Informed Consent: Yes. Inpatient/Outpatient History & Physical on Chart: Yes. If H&P is completed, is and addenduem needed: No; If yes, is the addendum complete: N/A. Visualize and Verify Site with Patient/Guarantor: N/A. Relevant Radiology Images available: Yes. Pre-op teaching completed and patient verbalized understanding. The risks, benefits, and alternatives of sedation and/or procedure were discussed by physician. The patient agrees to continue. Procedure started. [facility] Clinical Fraility Score: 3: Managing Well. Project Coordinator Indications: Worsening Angina. Chest Pain Symptom Assessment: Typical Angina Symptoms. Cardiovascular Instability: No. Correct patient, site and procedure confirmed by cath team. PERRLA. Strong, equal hand utility person bilaterally. Lungs clear x 5 lobes. IV Site on Arrival: 20 gauge in the left wrist. IV Fluids: 0.9% NaCl at KVO. 0 mL infused prior to powerhouse laborer. Oxygen started at 2liters/min via nasal canula. right groin was prepped with chloroprep then draped in the usual sterile fashion. right radial was prepped with chloroprep then draped in the usual sterile fashion. Physician notified. Physician arrived. Equipment: 6F - Radial. Cardiac Cath Pack. ACIST Manifold Kit Model BT 2000. Heparinized Saline (2 units/mL), 1000 mL bag. Baseline sample Acquired. HR: 55 BPM. Physician scrubbed in. Immediate Pre-Procedure Time Out. Correct Patient: Yes; Correct Procedure: Yes; Correct Site: Yes; Correct Patient Position: Yes; Correct Supplies: Yes; Dried Flammable Prep: Yes; Blood Products Available: N/A;. Lidocaine 1% infiltrated to the right radial. Arterial access obtained. A 5 israeli Valeriy catheter in over wire. Multiple views taken of left coronary artery. Catheter redirected to the RCA. Multiple views taken of right coronary artery. Catheter removed over the exchange wire. A 5 israeli Angled Pig catheter in over wire. EDP Sample taken: LV 186/15,32; HR: 80 BPM; SpO2: Off%. Hand Injection 5 ml. EDP Sample taken: LV 194/-2,31; HR: 68 BPM; SpO2: Off%. Pullback taken: LV 185/-2,31; AO 154/76(121); Mean: 22mmHg, Peak to Peak: 31mmHg, SEP: 24sec/min; HR: 71 BPM; SpO2: Off%. Catheter removed over the exchange wire. Physician scrubbed out. A TR Band was successful obtaining hemostatsis at the Right Radial artery insertion site. TR band placed. Hemostasis obtained. Post Procedure: Pulses reassessed and unchanged. PERRLA. Strong, equal hand utility person bilaterally. No VTE prophylaxis required. Medication's Wasted: Lidocaine 1% = 18 mL. Medication's Wasted: Nitro = 49.7 mg. Medication's Wasted: Heparin = 1000 units. Total IV fluids: 50 mL. Contrast type used: Omnipaque 300 mgI/mL, 500 mL bottle. Post-op diagnosis: normal coronaries. Complications: none. Estimated blood loss: 5mL-10mL. Responsiveness - Normal response to verbal stimuli; alert and oriented, PERRLA. Airway - Unaffected, no intervention required; spontaneous ventilation. Circulation: W/N/L, pulses unchanged. Nausea/Vomiting: No. Procedure completed. Patient transferred by wheelchair to CPRU. Vital chart was stopped. Access Site Site: Right Radial artery Sheath Size: 6 Fr Hemostasis Method: TR Band Hemostasis Success: Successful Procedure Medications Start: 7:35 AM Stop: 7:35 AM Medication: Versed Amount: 1 mg Route: I.V. Start: 7:35 AM Stop: 7:35 AM Medication: Fentanyl Amount: 50 mcg Route: I.V. Start: 7:38 AM Stop: 7:38 AM Medication: Versed Amount: 1 mg Route: I.V. Start: 7:41 AM Stop: 7:41 AM Medication: Nitrogylcerin Amount: 100 mcg Route: S.Q. Start: 7:43 AM Stop: 7:43 AM Medication: Nitrogylcerin Amount: 200 mcg Route: I.A. Start: 7:44 AM Stop: 7:44 AM Medication: Fentanyl Amount: 50 mcg Route: I.V. Start: 7:44 AM Stop: 7:44 AM Medication: Heparin Amount: 5000 units Route: I.V. Start: 7:47 AM Stop: 7:47 AM Medication: Versed Amount: 1 mg Route: I.V. Start: 7:49 AM Stop: 7:49 AM Medication: Versed Amount: 1 mg Route: I.V. I, the attending physician, have reviewed and verified all procedure medications. Yes, all medications given per verbal order History/Risk Factors Hypertension: Yes Dyslipidemia: No Peripheral Arterial Disease (PAD): No Myocardial Infarction (SD): No Obesity: Yes Renal Disease: No Tobacco Use: Current/Recent(w/in 1 year) Prior Interventions PCI: No CABG: No Valve Surgery: No Report Signatures Finalized by Marilynn Jiang MD on 01/11/2025 08:16 AM
--- NOTE | 2025-01-11 07:29 | P.HPUD_ITS ---
Surgery/Procedure H&P Update DATE OF PROCEDURE: January 11, 2025 DATE H&P PERFORMED: 01/04/25 H&P UPDATE INFORMATION: I have reviewed H&P completed within last 30 days, I have examined patient prior to procedure and No changes to prior documentation PREOP DIAGNOSIS: Abnormal stress test/chest pain PRIMARY INDICATION FOR PROCEDURE: Worsening of chest pain increase in frequency and duration radiating to neck and jaw suggestive of angina, stress test abnormal PLANNED PROCEDURE: Operation Date: 01/11/25 07:00 Proposed Procedures p Cardiac Catheterization - [facility] w/wo Lv & Coros(Left) - Marilynn Jiang MD PATIENT REASSESSED PRIOR TO SEDATION, WITH NO CHANGE NOTED: Yes PHYSICAL EXAM: alert, oriented x 3, clear to auscultation bilaterally, regular rate & rhythm and operative site marked AIRWAY EVAL/ANESTHESIA PLAN: ASA II, Risks, benefits & alternatives of sedation and/or procedure discussed and Patient agrees to continue as planned ADDITIONAL INFORMATION: Patient has been explained all risk-benefit and alternative for the procedure. Patient was 10 2% risk of stroke major bleed. Patient was stent 5% risk of minor bleeding bruising infection hematoma pseudoaneurysm contrast-induced nephropathy. Patient would like to proceed with it
--- NOTE | 2025-01-11 08:08 | PC.NURSE ---
Pt arrived to CPRU post cath for recovery home. Pt drowsy and oriented X 4. Breathing even and non-labored on room air . Denies pain. Right radial TR band in place. Asymptomatic. No signs of bleeding or hematoma. Requesting nicotine patch. Call light in reach.
--- NOTE | 2025-01-11 12:00 | PC.NURSE ---
TR band removal note Started releasing air from right radial TR band at 0910. 1-2ml air released every 5-15 minutes until band deflated. Band deflated at 1130. Large bandaid was placed over site. No bleeding or hematoma present. Radial pulse palpable.
== END 2025-01-11 12:45 | disposition home or self-care (01) ==
PROVIDERS: PCP Family Medicine; Visit Provider Internal Medicine Cardiovascular Disease
DX: R94.39 Abnormal result of other cardiovascular function study (principal); R07.9 Chest pain, unspecified; I10 Essential (primary) hypertension; F17.210 Nicotine dependence, cigarettes, uncomplicated; J45.909 Unspecified asthma, uncomplicated; R56.9 Unspecified convulsions; I25.2 Old myocardial infarction
CPT/HCPCS: 36415; 93458; 99152; 99153; C1769; C1887; C1894; J1644; J2250; J3010; J3490; J7030; J9999; Q0163; Q9967

== ENCOUNTER 2025-02-17 15:35 | Emergency (ER) | payer MEDICAID, SELFPAY ==
[2025-02-17 15:37] VITALS: BP 134/83; PULSE 74; RESP 16; TEMP 36.3; O2SAT 98; BMI 41.1
[2025-02-17 15:55] VITALS: BP 119/79; O2SAT 99
--- NOTE | 2025-02-17 15:58 | ED_ITS ---
HPI - Abdominal Pain General: Chief Complaint: Abdominal Pain Stated Complaint: inside of belly button is turning purple/black Time Seen by Provider: 02/17/25 15:46 History of Present Illness: Patient is a 39-year-old female that comes to the ED today with complaints of contusion to inner umbilicus. She has a small hernia in this area. She states she washes it nightly, and there was no contusion to the central area inside her umbilicus. She picked up her nephew 3 days ago that is approximately 90-100 pounds. She was also concerned about pancreatitis. She has no other signs and symptoms of any additional concerns, no abdominal pain, no nausea, no change in her stool that is typically loose having 3-4 a day on a regular basis. She is chronically on Zepbound. She has some mild upper abdominal discomfort. She is passing gas. This occurred just this morning with a blue small ecchymosis inside the umbilicus. This is not bigger than normal. There is no pain around this area. Associated Symptoms: Reports other (Inner umbilicus contusion/ecchymosis); Denies change in bowel habits, chills, fever(s), nausea and vomiting Related Data Home Medications ?Medication ?Instructions ?Recorded ?Confirmed acetaminophen 500 mg tablet 1,000 mg PO Q6H PRN Pain 0 10/29/22 01/10/25 tizanidine 4 mg tablet 4 mg PO BID PRN muscle spasm s 12/14/23 01/10/25 albuterol sulfate 90 mcg/actuation 2 puff inhalation Q 6H PRN 03/14/24 01/10/25 aerosol inhaler Shortness Of Breath ibuprofen 800 mg tablet 800 mg PO TID 03/14/2401/10 gabapentin 600 mg tablet 600 mg PO TID Pain 09/26/24 01/10/25 Probiotic PO 01/03/25 01/03/25 hydroxyzine HCl 50 mg tablet 50 mg PO QID PRN anxiety 01/03/25 01/10/25 spironolactone 25 mg tablet 25 mg PO DAILY PRN Edema 0 01/03/25 01/10/25 Previous Rx's ?Medication ?Instructions ?Recorded budesonide 0.5 mg/2 mL suspension 0.5 mg (2 mL) inhala tion BID #60 mL 02/18/25 for nebulization divalproex 500 mg tablet,delayed 1,500 mg (3 x 500 mg) PO .QPM 30 10/03/24 release days #90 tabs folic acid 1 mg tablet 2 mg (2 x 1 mg) PO DAILY #60 tabs 10/03/24 metoprolol succinate 25 mg 12.5 mg (1/2 x 25 mg) PO DA ASHLEY #45 01/03/25 tablet,extended release 24 hr tabs nitroglycerin 0.4 mg sublingual 0.4 mg sublingual Q5M PRN chest 01/03/25 tablet pain #25 tabs isosorbide mononitrate 30 mg 30 mg PO DAILY #90 tabs 0 01/11/25 tablet,extended release 24 hr Allergies Allergy/AdvReac Type Severity Reaction Status Date / Time codeine Allergy Unknown Unknown Verified 02/17/25 15:44 venlafaxine (From Effexor) Allergy Unknown Unknown Verified 02/17/25 15:44 cephalexin Allergy ADR-Vomitin Verified 02/17/25 15:44 g clarithromycin (From Biaxin) Allergy ADR-Vomitin Verified 02/17/25 15:44 g nystatin Allergy ALGY-Hives Verified 02/17/25 15:44 oxycodone Allergy ALGY-Hives Verified 02/17/25 15:44 Percocet Allergy ALGY-Hives Uncoded 02/17/25 15:44 Review of Systems General: Reports: 10 or more systems reviewed and unremarkable except in HPI and below Const: Denies: fever(s) or chills Card: Denies: chest pain (No current chest pain. Chest discomfort on , 3 days ago, relieved ), palpitations, irregular heart rhythm, swelling of feet/ankles, lightheadedness, pre-syncope, dyspnea on exertion, orthopnea or leg pain with exertion Resp: Reports: dyspnea; Denies: productive cough or non-productive cough GI: Reports: other (Inner umbilicus contusion/ecchymosis); Denies: abdominal pain, nausea, vomiting or change in bowel habits : Reports: other (Sevier urine and stools x 2 months); Denies: flank pain or difficulty voiding Musc: Denies: extremity pain or extremity swelling Neuro: Reports: dizziness Henok/Lymph: Denies: easy bruising, easy bleeding, petechiae or purpura PFSH ED PFS: Medical History (Updated 02/17/25 @ 16:07 by RAZIA Knott) Psychiatric care Pupil asymmetry Headache Tobacco dependence due to cigarettes History of asthma Seizure Hx of fracture of skull Chronic back pain Surgical History Hx of pelvic surgery Hx of dilation and curettage Hx of tonsillectomy Previous section Social History Smoking and tobacco/nicotine status: current every day tobacco/nicotine user Alcohol intake: current Substance/Drug Use: current Physical Exam Const: COMMON NORMALS: no acute distress, patient oriented x3, no limitations, healthy appearing, alert and well nourished GENERAL APPEARANCE: cooperative and well kempt NUTRITIONAL APPEARANCE: overweight HENMT: COMMON NORMALS: normocephalic and atraumatic HEAD & SCALP: norm ocephalic and atraumatic Eye: COMMON NORMALS: Equal, round and reactive pupils present, EOMs intact bilaterally and no scleral icterus PUPIL: Yes Equal, round and reactive pupils present Neck/C-Spine: COMMON NORMALS: full ROM and no lymphadenopathy Lymph: LYMPHATIC: no lymphadenopathy noted Chest: COMMONS NORMALS: normal inspection of the chest Resp: COMMON NORMALS: normal respiratory effort, No retractions and clear to auscultation bilaterally AUSCULTATION: clear to auscultation bilaterally Cardio: COMMON NORMALS: regular rate and regular rhythm RATE: regular rate RHYTHM: regular rhythm GI: COMMON NORMALS: Soft to palpation and non-tender INSPECTION: No Abdominal wall edema, No Anasarca, Yes abdominal distension (mild), No incision and Yes central obesity AUSCULTATION: Yes normoactive bowel sounds PALPATION: Yes Soft to palpation, No Firmness to palpation present (GI), No Tenderness to palpation present (GI), No Guarding due to palpation present (GI), No Rigid due to palpation, No Rebound tenderness present and Yes Other GI palpation findings present (Small blue ecchymosis inside umbilicus with small umbilicus hernia. ) OTHER: No surrounding ecchymosis Neuro: COMMON NORMALS: patient oriented x3 SENSORIUM/ORIENTATION: Yes alert Psych: APPEARANCE: Yes well kempt Course Vital Signs: Vital signs: Vital Signs Temperature 97.4 F L 02/17/25 15:37 Pulse Rate 74 02/17/25 16:12 Respiratory Rate 17 02/17/25 16:12 Blood Pressure 113/70 02/17/25 16:12 Pulse Oximetry 98 02/17/25 16:12 Oxygen Delivery Me thod Room Air 02/17/25 15:55 MDM - Abdominal Pain Medical Decision Making Patient is a 39-year-old female with known umbilical hernia that awoke with blue sheen inside her umbilicus. She is having no other symptoms. No nausea, no vomiting, she is passing gas. She does not have any abdominal pain. She did not note this last p.m. when she took her shower. There is no other related acute symptoms. Patient stated she picked up her nephew 3 nights ago and was concerned. She was also concerned with pancreatitis since she was on [employer]. I have assured her that: Sign does look differently than what hers look like on the inside of her umbilicus. She has not yet eaten today. I have encouraged food intake, return to ED if there is any other symptoms that delineate. She states understanding. She will continue her home regimen. Medical Records I reviewed the patient's medical records. No radiology studies performed this visit Discharge Plan Discharge Patient Disposition: Home Clinical Impression: Umbilical hernia Qualifiers: Obstruction and gangrene presence: without obstruction or gangrene Qualified Code(s): K42.9 - Umbilical hernia without obstruction or gangrene Condition: Stable Prescriptions: No Action tizanidine 4 mg tablet 4 mg PO BID PRN (Reason: muscle spasms) Patient Comments: Dr Bray/KALLI ibuprofen 800 mg tablet 800 mg PO TID albuterol sulfate 90 mcg/actuation HFA aerosol inhaler 2 puff inhalation Q6H PRN (Reason: Shortness Of Breath) budesonide 0.5 mg/2 mL suspension for nebulization 0.5 mg inhalation BID Qty: 60 0RF gabapentin 600 mg tablet 600 mg PO TID spironolactone 25 mg tablet 25 mg PO DAILY PRN (Reason: Edema) hydroxyzine HCl 50 mg tablet 50 mg PO QID PRN (Reason: anxiety) Probiotic PO nitroglycerin 0.4 mg tablet, sublingual 0.4 mg sublingual Q5M PRN (Reason: chest pain) Qty: 25 2RF Rx Instructions: do not exceed 3 doses per episode metoprolol succinate 25 mg tablet extended release 24 hr 12.5 mg PO DAILY Qty: 45 3RF divalproex 500 mg tablet,delayed release (DR/EC) 1,500 mg PO .QPM 30 Days Qty: 90 4RF folic acid 1 mg tablet 2 mg PO DAILY Qty: 60 5RF acetaminophen 500 mg Tablet 1,000 mg PO Q6H PRN (Reason: Pain) isosorbide mononitrate 30 mg tablet extended release 24 hr 30 mg PO DAILY Qty: 90 0RF Discharge Orders: Discharge ED (Routine); Ordered 02/17/25 Ordered By: China Blair Referrals: Manjeet Bray MD [Primary Care Provider, Family Practice] Discharge Diet: Usual diet Discharge Activity: Resume usual activity Patient Instructions: Umbilical Hernia (ED), Patient Portal & Fly Instructions Activity Restrictions/Additional Instructions: - Information was given to you regarding umbilical hernia. Return to ED if there are any concerns associated with this literature -Return to ED if you do have pain associated with your umbilicus, inability to pass gas, nausea, vomiting. Print Language: Equ[place] Coding Level of Care Code ED Director Educational Radio for Yunior Villagomez
[2025-02-17 16:12] VITALS: BP 113/70; PULSE 74; RESP 17; O2SAT 98
== END 2025-02-17 16:13 | disposition home or self-care (01) ==
PROVIDERS: Emergency Provider Physician Assistant; PCP Family Medicine
DX: K42.9 Umbilical hernia without obstruction or gangrene (principal); Z72.0 Tobacco use
CPT/HCPCS: 99281

== ENCOUNTER → 2025-02-26 15:06 | Outpatient (BNVA) | payer MEDICAID, SELFPAY | PROVIDERS: PCP Family Medicine; Visit Provider Orthopaedic Surgery | DX: M54.9 Dorsalgia, unspecified (principal); G89.29 Other chronic pain; M25.559 Pain in unspecified hip | CPT/HCPCS: 72100; 73523 ==

== ENCOUNTER 2025-03-07 09:27 | Outpatient (CLI) | payer MEDICAID, SELFPAY ==
--- NOTE | 2025-03-07 09:30 | CT_ITS ---
WS: [id number] CT ABDOMEN AND PELVIS NONCONTRAST HISTORY: REDUCIBLE UMBILICAL HERNIA TECHNIQUE: Imaging performed through the abdomen and pelvis. Coronal and sagittal reformats are submitted. All CT scans at [facility] use at least one of these dose optimization techniques: automated exposure control; mA and/or kV adjustment per patient size (includes targeted exams where dose is matched to clinical indication); or iterative reconstruction. DLP: 887.81 mGy.cm COMPARISON: 10/08/2022 Lower thorax: Well-circumscribed noncalcified 5 mm nodule at the LEFT lung base is new since 10/08/2022. Heart size is normal. Small hiatal hernia. Liver: Normal size liver. No mass or bile duct dilatation. Gallbladder: Mildly contracted gallbladder. No adjacent inflammation. Pancreas: Normal size and attenuation. Normal pancreatic duct. No pancreatitis or mass. Spleen: Normal. Adrenal glands: Normal. No mass. Right kidney: Normal size kidney with no mass or hydronephrosis. Left kidney: Normal size kidney with no mass or hydronephrosis. Aorta: Normal abdominal aorta, no aneurysm or atherosclerosis. No free fluid, intraperitoneal air or significant lymphadenopathy. GI tract: Normal noncontrast imaging of the stomach, small bowel and colon. No obstruction or wall thickening. Normal appendix. Abdominal wall: Fat-containing umbilical hernia. Mild diastases rectus. No soft tissue mass associated with the hernia. Hernia has slightly increased in size since 10/08/2022. Pelvis: Normal size uterus. No adnexal masses. Small ovarian follicles. Osseous structures: Transverse screw extending through the SI joints. CT/CT abdomen pelvis wo con [id number] IMPRESSION: 1. Fat-containing umbilical hernia. Hernia has slightly increased in size sinc e 2022. There is no associated soft tissue mass. 2. No renal obstruction. 3. New 5 mm noncalcified nodule at the LEFT lung base. Recommend chest CT foll ow-up in 6 months. 4. No ascites or adenopathy.
[2025-03-07 10:52] LABS: HCG Qualitative Urine. Negative (Negative)
== END 2025-03-07 09:28 | disposition home or self-care (01) ==
LOC: RAD 09:28
PROVIDERS: PCP Family Medicine; Visit Provider Nurse Practitioner Family
DX: K42.9 Umbilical hernia without obstruction or gangrene (principal); R91.1 Solitary pulmonary nodule; K44.9 Diaphragmatic hernia without obstruction or gangrene; M62.08 Separation of muscle (nontraumatic), other site; N83.00 Follicular cyst of ovary, unspecified side
CPT/HCPCS: 74176; 81025

== ENCOUNTER 2025-03-19 06:18 | Outpatient (CLI) | payer MEDICAID, SELFPAY ==
--- NOTE | 2025-03-19 07:00 | USCV_ITS ---
Lupe Florez Age: 39 Gender: F : 1985 Exam Date: 03/19/2025 06:32 Ordering Phys: Marilynn Jiang MD ([email or web address]) Technologist: [place] [facility] [place]: hx heart disease cp BP: 120 / 70 HR: 65 Rhythm: Sinus Technical Quality: Adequate MEASUREMENTS (Male / Female) Normal Values 2D ECHO LV Diastolic Diameter PLAX 4.0 cm 4.2 - 5.9 / 3.9 - 5.3 cm IVS Diastolic Thickness 0.8 cm 0.6 - 1.0 / 0.6 - 0.9 cm IVS Systolic Thickness 1.3 cm LVPW Diastolic Thickness 1.0 cm 0.6 - 1.0 / 0.6 - 0.9 cm LVPW Systolic Thickness 1.4 cm LVOT Diameter 2.0 cm LV Ejection Fraction 2D Teich 56.6 % LV Ejection Fraction MOD 4C 72.0 % LV Ejection Fraction MOD 2C 64.7 % LV Ejection Fraction 2C AL 64.3 % LA Diameter 2.7 cm RA Systolic Volume 4C AL 47.0 ml RA Systolic Volume 4C MOD 44.2 ml LA Sys Volume AL 44.7 cm cubed LA Sys Volume Index AL 20.0 cm cubed/m squared Aorta at Sinotubular Diameter 2.8 cm IVC Diameter 1.5 cm M-MODE LA Ao Ratio MM 1.0 AV Cusp Separation MM 1.9 cm DOPPLER AV Peak Velocity 127.0 cm/s LVOT Peak Velocity 97.0 cm/s AV Area Cont Eq vti 2.7 cm squared AV Area Cont Eq pk 2.4 cm squared MV Peak Velocity 100.0 cm/s MV Area PHT 5.1 cm squared Mitral E to A Ratio 1.9 TR Peak Velocity 157.0 cm/s TR Peak Gradient 9.9 mmHg TV Peak E Velocity 81.0 cm/s PV Peak Velocity 104.0 cm/s FINDINGS Left Ventricle Normal left ventricular size, systolic function and wall thickness, with no regional wall motion abnormalities. Left ventricular ejection fraction is estimated at 60 %. Normal diastolic function. Right Ventricle Normal right ventricular size and systolic function. Right Atrium Normal right atrial size. Left Atrium Normal left atrial size. IA Septum Normal appearance of the interatrial septum. Mitral Valve Normal mitral valve structure. No mitral valve stenosis or regurgitation. Aortic Valve Normal aortic valve structure. No aortic valve stenosis or regurgitation. Tricuspid Valve Normal tricuspid valve structure. No tricuspid valve stenosis or regurgitation. Normal pulmonary pressure. Pulmonic Valve Normal pulmonic valve structure. No pulmonic valve stenosis or regurgitation. Pericardium No pericardial effusion. Aorta Normal diameter of the aortic root and ascending thoracic aorta. IVC Normal IVC diameter. CONCLUSIONS Normal left ventricular size, systolic function and wall thickness, with no regional wall motion abnormalities. Left ventricular ejection fraction is estimated at 60 %. Normal diastolic function. No significant valvular abnormalities. There is no pericardial effusion. Right atrial pressure is around 5 mm of mercury. Marilynn Jiang MD (Electronically Signed) Final Date: 24 March 2025 20:58 S
== END 2025-03-19 06:19 | disposition home or self-care (01) ==
LOC: RAD 06:19
PROVIDERS: PCP Family Medicine; Visit Provider Internal Medicine Cardiovascular Disease
DX: R06.02 Shortness of breath (principal); R00.2 Palpitations
CPT/HCPCS: 93306

== ENCOUNTER → 2025-05-29 10:11 | Outpatient (BNVA) | payer OTHER, SELFPAY | PROVIDERS: PCP Family Medicine; Visit Provider Psychiatry & Neurology Psychiatry | DX: F41.1 Generalized anxiety disorder (principal); F33.1 Major depressive disorder, recurrent, moderate; F43.10 Post-traumatic stress disorder, unspecified | CPT/HCPCS: 80061; 83036 ==